=== PATIENT | female | born 1940 | race Caucasian/White ===

== ENCOUNTER 2017-02-17 08:36 | Inpatient (IN) | payer MEDICARE, BC ==
[~2017-02-17 08:36] MED LIST: Acetaminophen/oxyCODONE 325-5 MG Tab PO PRN; Lactated Ringers 1,000 ML IV SCH; Lidocaine 1%/Sod Bicarbonate in NS 8.4% 1 ML Syringe PRN; Sodium Chloride 0.9% 10 ML Syringe FLUSH PRN
[2017-02-17] MEDS ORDERED: Propofol 200 MG/20 ML SDV ONE ×2 (09:08→12:49)
[2017-02-17] MEDS ORDERED: Midazolam 1 MG/ML 2 ML SDV ONE (09:09)
[2017-02-17] MEDS ORDERED: Morphine PF 10 MG/10 ML SDV ONE (09:17)
--- NOTE | 2017-02-17 09:33 | PCM.PREANE ---
Preanesthetic Assessment - Anesthesia/Transfusion/Family Hx Anesthesia History: Prior Anesthesia Without Reaction Type of Anesthesia Reaction: Other (see below) (trouble waking up) Family History of Anesthesia Reaction: No Transfusion History: No Prior Transfusion(s) - Review of Systems General: No Symptoms, Fatigue (tired alot) Pulmonary: Shortness of Breath (with exertion) Cardiovascular: No Symptoms, Dyspnea on Exertion Gastrointestinal: No symptoms Neurological: No Symptoms Other: Reports: Easy Bruising, Diabetes, Thyroid Problems - Physical Assessment NPO Status Date: 02/16/17 NPO Status Time: 21:30 Pulse: 70 O2 Sat by Pulse Oximetry: 97 Respiratory Rate: 20 Blood Pressure: 155/73 Temperature: 99 F Height: 5 ft Weight: 99.79 kg ASA Class: 3 Mental Status: Alert & Oriented x3 Dentition: Reports: Dentures (top and bottom) Thyro-Mental Finger Breadths: 3 Mouth Opening Finger Breadths: 3 ROM/Head Extension: Full Lungs: Clear to auscultation, Normal respiratory effort Cardiovascular: Regular Rate, Irregular Rhythm - Lab Values: FBS today 146 at 0700 01/2017 HGB 12 Plt 292 BUN 30 Cr 1.28 Lytes WNL HGBA1C 7.4 - Imaging/EKG Impressions: 01/29 CXR borderline cardiomegaly. tortuous aorts. 01/29 EKG- SR 69 HR PAC - left BBB - Allergies Allergies/Adverse Reactions: Allergies Allergy/AdvReac Type Severity Reaction Status Date / Time amoxicillin trihydrate AdvReac Diarrhea Verified 02/17/17 09:00 [From Augmentin] ciprofloxacin [From Cipro] AdvReac Nausea Verified 02/14/17 11:43 ciprofloxacin HCl AdvReac Nausea Verified 02/14/17 11:43 [From Cipro] meclizine HCl [From Antivert] AdvReac Confusion Verified 02/14/17 11:43 potassium clavulanate AdvReac Diarrhea Verified 02/17/17 09:00 [From Augmentin] Sulfa (Sulfonamide AdvReac Stomach Verified 02/14/17 11:43 Antibiotics) Upset sulfamethoxazole AdvReac Nausea Verified 02/17/17 09:00 [From Bactrim] trimethoprim [From Bactrim] AdvReac Nausea Verified 02/17/17 09:00 - Blood Blood Available: No - Anesthesia Plan Pre-Op Medication Ordered: Beta Simón Beta Simón: Carvedilol Med Last Dose Date: 02/17/17 Med Last Dose Time: 07:00 - Acknowledgements Anesthesia Type Planned: Spinal Pt an Appropriate Candidate for the Planned Anesthesia: Yes Alternatives and Risks of Anesthesia Discussed w Pt/Guardian: Yes Pt/Guardian Understands and Agrees with Anesthesia Plan: Yes PreAnesthesia Questionnaire HEENT History: Reports: Impaired Vision, Macular Degeneration, Other (See Below) Other HEENT History: glasses, dentures Cardiovascular History: Reports: Afib, Arrhythmia, Cardiomyopathy, High Cholesterol, Hypertension, PVD, Other (See Below) Other Cardiovascular History: PACs Respiratory History: Reports: SOB Gastrointestinal History: Reports: Gastritis, GERD, Irritable Bowel Syndrome Genitourinary History: Reports: Other (See Below) Other Genitourinary History: acute renal failure, was on dialysis tempor2013 [employer] History: Reports: Musculoskeletal History: Reports: Back Pain, Chronic, Osteoarthritis Neurological History: Reports: Vertigo, Other (See Below) Other Neuro History: spinal stenosis with tingling to hands Psychiatric History: Reports: None Endocrine/Metabolic History: Reports: Diabetes, Type II, Hyperparathyroidism, Obesity/BMI 30+ Hematologic History: Reports: Anemia Immunologic History: Reports: None Oncologic (Cancer) History: Reports: None Dermatologic History: Reports: None - Past Surgical History Head Surgeries/Procedures: Reports: None Cardiovascular Surgical History: Reports: Other (See Below) (cardiac cath) GI Surgical History: Reports: Appendectomy, Colonoscopy Endocrine Surgical History: Reports: Parathyroidectomy Neurological Surgical History: Reports: Laminectomy Musculoskeletal Surgical History: Reports: Other (See Below) Other Musculoskeletal Surgeries/Procedures:: Shoulder surgery, laminectomy - SUBSTANCE USE Smoking Status *Q: Never Smoker Tobacco Use Within Last Twelve Months: No Second Hand Smoke Exposure: No Days Per Week of Alcohol Use: 0 Number of Drinks Per Day: 0 Total Drinks Per Week: 0 Recreational Drug Use History: No - HOME MEDS Home Medications: Home Meds Allopurinol [Zyloprim] 100 mg PO DAILY 07/06/14 [History] Aspirin [Halfprin] 81 mg PO DAILY 07/06/14 [History] Calcium Carb & Citrate/Vit D3 [Calcium + D3 ER Tablet] 1 tab PO DAILY 07/06/14 [ History] Carvedilol 12.5 mg PO BID 07/06/14 [History] Furosemide 20 mg PO DAILY 07/06/14 [History] Gabapentin 200 mg PO DAILY 07/06/14 [History] Insulin Glarg,Human.Rec.Analog [Lantus Solostar] 31 units SQ BEDTIME 07/06/14 [ History] Losartan [Cozaar] 50 mg PO DAILY 07/06/14 [History] Lutein/Minerals/Vit A,C & E [Ocuvite] 1 tab PO DAILY 07/06/14 [History] Omeprazole 40 mg PO DAILY 07/06/14 [History] Sucralfate [Carafate] 2 gm PO BEDTIME 07/06/14 [History] tiZANidine HCl [Tizanidine HCl] 4 mg PO BEDTIME 07/06/14 [History] traMADol [Ultram] 100 mg PO BID 07/06/14 [History] Cholecalciferol (Vitamin D3) [Vitamin D3] 1,000 unit PO DAILY 02/14/17 [History] Insulin Aspart [NovoLOG] 1 dose SQ TID 02/14/17 [History] Levothyroxine 25 mcg PO DAILY 02/14/17 [History] Rosuvastatin [Crestor] 10 mg PO DAILY 02/14/17 [History] metFORMIN HCl [Metformin HCl] 250 mg PO BID 02/14/17 [History] - CURRENT (IN HOUSE) MEDS Current Meds: Current Medications Aspirin (Ecotrin) 325 mg PO BID CATHY Bisacodyl (Dulcolax) 5 mg PO DAILY PRN PRN Reason: Constipation Morphine Sulfate 8 mg/Epinephrine HCl 0.3 mg/Cefuroxime Sodium 750 mg/Ketorolac Tromethamine 30 mg/Sodium Chloride 27.9 ml 0 mg .XX ONETIME ONE Stop: 02/17/17 10:46 Docusate Sodium (Colace) 100 mg PO BID CATHY Famotidine (Pepcid) 20 mg PO Q12H CATHY Lactated Ringer's (Ringers, Lactated) 1,000 mls @ 125 mls/hr IV ASDIRECTED CATHY Stop: 02/17/17 23:00 Lidocaine/Sodium Bicarbonate (Buffered Lidocaine 1% In Ns 8.4%) 0.25 ml .XX ONETIME PRN PRN Reason: Prior to IV Start Stop: 02/17/17 18:00 Magnesium Hydroxide (Milk Of Magnesia) 30 ml PO BID PRN PRN Reason: Constipation Morphine Sulfate (Morphine) 2 mg IVPUSH Q2H PRN PRN Reason: Breakthrough Pain Multivitamins (Thera) 1 each PO WITHBREAKFAST CATHY Naloxone HCl (Narcan) 0.1 mg IVPUSH Q5M PRN PRN Reason: Oversedation Stop: 02/17/17 07:26 Ondansetron HCl (Zofran) 4 mg IVPUSH Q6H PRN PRN Reason: Nausea/Vomiting Oxycodone/Acetaminophen (Percocet 325-5 Mg) 1 - 2 tab PO Q4H PRN PRN Reason: Pain Oxycodone/Acetaminophen (Percocet 325-5 Mg) 1 - 2 tab PO Q4H PRN PRN Reason: Pain Senna (Senna) 8.6 mg PO BID PRN PRN Reason: Constipation Sodium Chloride (Saline Flush) 10 ml FLUSH ASDIRECTED PRN PRN Reason: Keep Vein Open Stop: 02/17/17 18:00 Discontinued Medications Cefazolin Sodium (Ancef) Confirm Administered Dose 2 gm .ROUTE .STK-MED ONE Stop: 02/17/17 09:06 Midazolam HCl (Versed 1 Mg/Ml) Confirm Administered Dose 2 mg .ROUTE .STK-MED ONE Stop: 02/17/17 09:10 Morphine Sulfate (Duramorph Pf) Confirm Administered Dose 10 mg .ROUTE .STK-MED ONE Stop: 02/17/17 09:18 Propofol (Diprivan 20 Ml) Confirm Administered Dose 200 mg .ROUTE .STK-MED ONE Stop: 02/17/17 09:09
[2017-02-17] MEDS ORDERED: ceFAZolin 1 GM Vial ONE (09:47)
[2017-02-17] MEDS ORDERED: Diphtheria,Pertussis(Acell),Tetanus Vaccine 0.5 ML SDV inactive IM ONE (09:51)
[2017-02-17] MEDS ORDERED: Pneumococcal 13-Valent Conjugate Vaccine 0.5 ML Syringe IM ONE (09:52)
[2017-02-17] MEDS: Bupivacaine 0.25% 30 ML SDV ONE ×2 (11:07→13:05)
[2017-02-17] MEDS: Morphine 8 MG, EPINEPHrine 0.3 MG, Cefuroxime 750 MG, Ketorolac 30 MG, Sodium Chloride ... ONE ×10 (11:08→13:04)
[2017-02-17] MEDS: Iodine/Sodium Iodide 2% Tincture 30 ML Bottle ONE ×2 (11:08→13:00)
[2017-02-17] MEDS: ceFAZolin 1 GM Vial ONE ×2 (11:09→13:02)
[2017-02-17] MEDS ORDERED: Sodium Chloride 0.9% 1,000 ML ONE (11:50)
[2017-02-17] MEDS ORDERED: Magnesium Hydroxide 400 MG/5 ML Susp 30 ML Cup PO PRN (12:00)
[2017-02-17] MEDS ORDERED: Bisacodyl 5 MG Tab PO PRN (12:00)
[2017-02-17] MEDS ORDERED: Naloxone 0.4 MG/ML SDV IVPUSH PRN (12:00)
[2017-02-17] MEDS ORDERED: Sennosides 8.6 MG Tab PO PRN (12:00)
[2017-02-17] MEDS ORDERED: Ondansetron 4 MG/2 ML SDV IVPUSH PRN ×2 (12:00→12:44)
[2017-02-17] MEDS ORDERED: Lidocaine 1% 4 ML ONE (12:04)
[2017-02-17] MEDS ORDERED: ePHEDrine/Normal Saline 25 MG/5 ML Syringe ONE ×2 (12:16→13:31)
[2017-02-17] MEDS ORDERED: fentaNYL 100 MCG/2 ML SDV IVPUSH PRN (12:44)
[2017-02-17] MEDS ORDERED: diphenhydrAMINE 50 MG/ML SDV IVPUSH PRN (13:19)
--- NOTE | 2017-02-17 13:39 | PCM.OPNOTE ---
- General Post-Op/Procedure Note Date of Surgery/Procedure: 02/17/17 Operative Procedure(s): left total knee arthroplasty Pre Op Diagnosis: left knee osteoarthrosis Post-Op Diagnosis: Same Anesthesia Technique: Local, MAC, Spinal Primary Surgeon: Parveen Brothers Anesthesia Provider: Bk Ceja Package Sealer Machine: Gracie Ortiz Package Sealer Machine: Kayla Walter in mLs: 100 Complications: None Condition: Good
--- NOTE | 2017-02-17 13:50 | PCM.POSTAN ---
POST ANESTHESIA ASSESSMENT - MENTAL STATUS Mental Status: alert, oriented - VITAL SIGNS Pulse Rate: 76 SaO2: 96 Resp Rate: 16 Blood Pressure: 111/48 Temperature: 99.5 F - RESPIRATORY Respiratory Status: respiratory rate WNL, airway patent, O2 saturation stable, supplemental oxygen - CARDIOVASCULAR CV Status: pulse rate WNL, blood pressure stable - GASTROINTESTINAL GI Status: no symptoms - PAIN Pain Score: 0 - POST OP HYDRATION Hydration Status: adequate & stable
--- NOTE | 2017-02-17 15:23 | CR ---
Left knee: AP and lateral views of the left knee were obtained. Comparison: No previous knee exam. Left knee prosthesis is seen. Components are aligned. Soft tissue air is noted from the surgical procedure. Underlying bony structures are intact. Impression: 1. Satisfactory appearance of recently placed left knee prosthesis. Diagnostic code #2
--- NOTE | 2017-02-17 16:09 | PCM.CONSN ---
- General Info Date of Service: 02/17/17 Admission Dx/Problem (Free Text): 76 year old female with left knee OA is S/P left total knee arthroplasty. The patient has an extensive PMH: MEI (without CPAP); HTN; A fib; Hyperlipdemia; CMP; PVD; GERD. The hospitalist service will assist with medical management. Functional Status: Reports: pain controlled, tolerating diet, urinating - Review of Systems General: Reports: No Symptoms HEENT: Reports: no symptoms Pulmonary: Reports: no symptoms Cardiovascular: Reports: No Symptoms Gastrointestinal: Reports: No symptoms Genitourinary: Reports: no symptoms Musculoskeletal: Reports: leg pain Skin: Reports: no symptoms Neurological: Reports: No Symptoms Psychiatric: Reports: no symptoms - Patient Data Vitals - most recent: Last Vital Signs Temp 36.3 C 02/17/17 14:30 Pulse 68 02/17/17 15:28 Resp 16 02/17/17 15:28 BP 132/61 02/17/17 15:00 Pulse Ox 93 L 02/17/17 15:28 Weight - most recent: 105.143 kg I&O - last 24 hours: Intake & Output 02/17/17 02/17/17 02/17/17 06:59 14:59 22:59 Intake Total 200 Output Total 275 Balance -75 Lab Results last 24 hrs: Laboratory Results - last 24 hr 02/17/17 Range/Units 13:53 POC Glucose 99 (83-110) mg/dL Med Orders - Current: Current Medications Aspirin (Ecotrin) 325 mg PO BID CATHY Bisacodyl (Dulcolax) 5 mg PO DAILY PRN PRN Reason: Constipation Diphenhydramine HCl (Benadryl) 25 mg IVPUSH Q6H PRN PRN Reason: pruritis Stop: 02/17/17 18:00 Docusate Sodium (Colace) 100 mg PO BID CATHY Famotidine (Pepcid) 20 mg PO BID CATHY Magnesium Hydroxide (Milk Of Magnesia) 30 ml PO BID PRN PRN Reason: Constipation Morphine Sulfate (Morphine) 2 mg IVPUSH Q2H PRN PRN Reason: Breakthrough Pain Multivitamins (Thera) 1 each PO WITHBREAKFAST CATHY Ondansetron HCl (Zofran) 4 mg IVPUSH Q6H PRN PRN Reason: Nausea/Vomiting Ondansetron HCl (Zofran) 4 mg IVPUSH ONETIME PRN PRN Reason: Nausea/Vomiting Stop: 02/17/17 18:00 Oxycodone/Acetaminophen (Percocet 325-5 Mg) 1 - 2 tab PO Q4H PRN PRN Reason: Pain Senna (Senna) 8.6 mg PO BID PRN PRN Reason: Constipation Sodium Chloride (Saline Flush) 10 ml FLUSH ASDIRECTED PRN PRN Reason: Keep Vein Open Stop: 02/17/17 18:00 Discontinued Medications Bupivacaine HCl (Marcaine 0.25%) Confirm Administered Dose 30 ml .ROUTE .STK- MED ONE Stop: 02/17/17 09:48 Last Admin: 02/17/17 13:05 Dose: 30 ml Cefazolin Sodium (Ancef) Confirm Administered Dose 2 gm .ROUTE .STK-MED ONE Stop: 02/17/17 09:06 Last Admin: 02/17/17 13:02 Dose: 2 gm Cefazolin Sodium (Ancef) Confirm Administered Dose 2 gm .ROUTE .STK-MED ONE Stop: 02/17/17 09:48 Morphine Sulfate 8 mg/Epinephrine HCl 0.3 mg/Cefuroxime Sodium 750 mg/Ketorolac Tromethamine 30 mg/Sodium Chloride 27.9 ml 0 mg .XX ONETIME ONE Stop: 02/17/17 10:46 Last Admin: 02/17/17 13:04 Dose: 788.3 mg Diphtheria/Tetanus/Acell Pertussis (Boostrix) 0.5 ml IM .ONCE ONE Stop: 02/17/17 09:52 Ephedrine Sulfate (Ephedrine In Ns) Confirm Administered Dose 25 mg .ROUTE .STK- MED ONE Stop: 02/17/17 12:17 Ephedrine Sulfate (Ephedrine In Ns) Confirm Administered Dose 25 mg .ROUTE .STK- MED ONE Stop: 02/17/17 13:32 Fentanyl (Sublimaze) 50 mcg IVPUSH Q5M PRN PRN Reason: Pain Stop: 02/17/17 18:00 Lactated Ringer's (Ringers, Lactated) 1,000 mls @ 125 mls/hr IV ASDIRECTED CATHY Stop: 02/17/17 23:00 Last Admin: 02/17/17 09:10 Dose: 125 mls/hr Sodium Chloride (Normal Saline) Confirm Administered Dose 1,000 mls @ as directed .ROUTE .STK-MED ONE Stop: 02/17/17 11:51 Lidocaine HCl (Xylocaine-Mpf 1%) Confirm Administered Dose 4 mls @ as directed .ROUTE .STK-MED ONE Stop: 02/17/17 12:05 Iodine (Iodine 2% Mild Tincture) Confirm Administered Dose 30 ml .ROUTE .STK- MED ONE Stop: 02/17/17 09:48 Last Admin: 02/17/17 13:00 Dose: 18 ml Lidocaine/Sodium Bicarbonate (Buffered Lidocaine 1% In Ns 8.4%) 0.25 ml .XX ONETIME PRN PRN Reason: Prior to IV Start Stop: 02/17/17 18:00 Last Admin: 02/17/17 09:09 Dose: 0.25 ml Midazolam HCl (Versed 1 Mg/Ml) Confirm Administered Dose 2 mg .ROUTE .STK-MED ONE Stop: 02/17/17 09:10 Morphine Sulfate (Duramorph Pf) Confirm Administered Dose 10 mg .ROUTE .STK-MED ONE Stop: 02/17/17 09:18 Naloxone HCl (Narcan) 0.1 mg IVPUSH Q5M PRN PRN Reason: Oversedation Stop: 02/17/17 12:16 Pneumococcal 13-Valent Conj Vacc (Prevnar 13) 0.5 ml IM .ONCE ONE Stop: 02/17/17 09:53 Propofol (Diprivan 20 Ml) Confirm Administered Dose 200 mg .ROUTE .STK-MED ONE Stop: 02/17/17 09:09 Propofol (Diprivan 20 Ml) Confirm Administered Dose 200 mg .ROUTE .STK-MED ONE Stop: 02/17/17 12:50 Tranexamic Acid (Cyklokapron) Confirm Administered Dose 1,000 mg .ROUTE .STK- MED ONE Stop: 02/17/17 09:47 Last Admin: 02/17/17 13:14 Dose: 1,000 mg - Exam Quality Assessment: urine catheter (post op), DVT prophylaxis General: alert, oriented, cooperative, no acute distress HEENT: Pupils equal, Pupils reactive, EOMI Neck: supple, trachea midline, no JVD Lungs: Normal respiratory effort Cardiovascular: Regular Rate, Regular Rhythm Abdomen: bowel sounds present, soft, no tenderness, no distension (Female) Exam: Deferred Back Exam: Normal Inspection Extremities: normal pulses Skin: warm Wound/Incisions: dressing dry and intact Neurological: no new focal deficit, normal speech Psy/Mental Status: alert, normal affect, normal mood Consult PN Assessment/Plan POD#: 0 Procedures: Procedures ARTHROSCOP ROTATOR CUFF REPR (07/07/14) ASSAY OF MAGNESIUM (07/07/14) CANALITH REPOSITIONING PROC (03/07/15) COMPLETE CBC W/AUTO DIFF WBC (07/07/14) CT HEAD/BRAIN W/O DYE (04/03/15) ECG MONIT/REPRT UP TO 48 HRS (04/03/15) ECG MONIT/REPRT UP TO 48 HRS (04/03/15) ELECTROCARDIOGRAM TRACING (07/07/14) EVALUATE PT USE OF INHALER (07/07/14) GLUCOSE BLOOD TEST (07/07/14) MANUAL THERAPY 1/> REGIONS (10/24/16) MASSAGE THERAPY (03/27/15) METABOLIC PANEL TOTAL CA (07/07/14) MR-STAPH DNA AMP PROBE (02/05/17) MRI JOINT UPR EXTREM W/O DYE (04/28/14) NEUROMUSCULAR REEDUCATION (03/27/15) OT EVALUATION (02/11/14) PT EVAL MOD COMPLEX 30 MIN (10/03/16) PT EVALUATION (03/07/15) ROUTINE VENIPUNCTURE (07/07/14) SHOULDER ARTHROSCOPY/SURGERY (07/07/14) SHOULDER ARTHROSCOPY/SURGERY (07/07/14) THERAPEUTIC ACTIVITIES (02/22/14) THERAPEUTIC EXERCISES (10/24/16) THROMBOPLASTIN TIME PARTIAL (06/27/14) ULTRASOUND THERAPY (10/24/16) (1) Afib, Atrial fibrillation SNOMED Code(s): 75831911 Code(s): I48.91 - UNSPECIFIED ATRIAL FIBRILLATION Current Visit: No (2) Diabetes mellitus SNOMED Code(s): 39177360 Code(s): E11.9 - TYPE 2 DIABETES MELLITUS WITHOUT COMPLICATIONS Current Visit: No (3) HTN, Benign essential hypertension SNOMED Code(s): 4126001 Code(s): I10 - ESSENTIAL (PRIMARY) HYPERTENSION Current Visit: No Problem List Initiated/Reviewed/Updated: Yes Plan: Impression: POD 0, S/P left total knee athroplasty History of OA Morbid Obesity Chronic HTN Hyperlipidemia MEI (has not had a sleep study) Hyperlipidemia A Fib CMP PVD GERD Diabetes Mellitus Plan: Post op [place] removal Daily labs Home meds Pain mgt DVT prophylaxis SW/PT/OT
[2017-02-17] MEDS ORDERED: Pneumococcal Polyvalent-23 Vaccine 0.5 ML SDV IM ONE (16:12)
[2017-02-17] MEDS: Acetaminophen/oxyCODONE 325-5 MG Tab PO PRN ×2 (18:54→23:11)
[2017-02-17] MEDS ORDERED: Famotidine 20 MG Tab PO SCH (21:00)
[2017-02-17] MEDS: Cyclobenzaprine 10 MG Tab PO PRN (21:12)
[2017-02-17] MEDS: ceFAZolin 2 GM in Premix Bag 1 BAG IV SCH (21:13)
[2017-02-18] MEDS: Acetaminophen/oxyCODONE 325-5 MG Tab PO PRN ×4 (04:29→20:52)
[2017-02-18] MEDS: ceFAZolin 2 GM in Premix Bag 1 BAG IV SCH ×2 (04:32→12:54)
[2017-02-18] MEDS: Cyclobenzaprine 10 MG Tab PO PRN ×2 (05:19→15:17)
[2017-02-18] MEDS: Multivitamins,Therapeutic Tab PO SCH (06:53)
--- NOTE | 2017-02-18 06:53 | PCM.CONSN ---
- General Info Date of Service: 02/18/17 Admission Dx/Problem (Free Text): POD #[address] Brothers Pain is 9/10 this morning; she did not sleep well. No nausea. Sol to be dc'd this am. She was up with PT yesterday x 1, did well. Nursing reports b/p elevated this morning. Plans for DC to SNF for rehab stay Functional Status: Reports: tolerating diet, ambulating, urinating (sol in place; to be dc'd this am). Denies: new symptoms - Review of Systems General: Denies: Fever HEENT: Reports: no symptoms Pulmonary: Reports: no symptoms. Denies: shortness of breath, cough Cardiovascular: Reports: No Symptoms. Denies: Chest Pain, Palpitations, Dyspnea on Exertion Gastrointestinal: Reports: No symptoms Genitourinary: Reports: no symptoms Musculoskeletal: Reports: leg pain Neurological: Reports: No Symptoms Psychiatric: Reports: no symptoms - Patient Data Vitals - most recent: Last Vital Signs Temp 99.0 F 02/18/17 06:24 Pulse 92 02/18/17 06:24 Resp 18 02/18/17 04:00 BP 180/88 H 02/18/17 06:24 Pulse Ox 98 02/18/17 06:24 Weight - most recent: 236 lb 9.6 oz I&O - last 24 hours: Intake & Output 02/17/17 02/17/17 02/18/17 14:59 22:59 06:59 Intake Total 200 0 350 Output Total 275 425 Balance -75 0 -75 Lab Results last 24 hrs: Laboratory Results - last 24 hr 02/17/17 02/17/17 02/17/17 Range/Units 13:53 17:17 21:35 WBC (3.98-10.04) K/mm3 RBC (3.98-5.22) M/mm3 Hgb (11.2-15.7) gm/L Hct (34.1-44.9) % MCV (79.4-94.8) fl MCH (25.6-32.2) pg MCHC (32.2-35.5) g/dl RDW Std Deviation (36.4-46.3) fL Plt Count (182-369) K/mm3 MPV (9.4-12.3) fl Neut % (Auto) (34.0-71.1) % Lymph % (Auto) (19.3-51.7) % [place] % (Auto) (4.7-12.5) % Eos % (Auto) (0.7-5.8) Baso % (Auto) (0.1-1.2) % Neut # (Auto) (1.56-6.13) K/mm3 Lymph # (Auto) (1.18-3.74) K/mm3 [place] # (Auto) (0.24-0.36) K/mm3 Eos # (Auto) (0.04-0.36) K/mm3 Baso # (Auto) (0.01-0.08) K/mm3 Manual Slide Review POC Glucose 99 102 204 H (83-110) mg/dL 02/18/17 Range/Units 05:12 WBC 8.33 (3.98-10.04) K/mm3 RBC 3.95 L (3.98-5.22) M/mm3 Hgb 10.7 L (11.2-15.7) gm/L Hct 35.8 (34.1-44.9) % MCV 90.6 (79.4-94.8) fl MCH 27.1 (25.6-32.2) pg MCHC 29.9 L (32.2-35.5) g/dl RDW Std Deviation 48.6 H (36.4-46.3) fL Plt Count 316 (182-369) K/mm3 MPV 9.8 (9.4-12.3) fl Neut % (Auto) 75.4 H (34.0-71.1) % Lymph % (Auto) 14.6 L (19.3-51.7) % [place] % (Auto) 7.9 (4.7-12.5) % Eos % (Auto) 1.8 (0.7-5.8) Baso % (Auto) 0.2 (0.1-1.2) % Neut # (Auto) 6.27 H (1.56-6.13) K/mm3 Lymph # (Auto) 1.22 (1.18-3.74) K/mm3 [place] # (Auto) 0.66 H (0.24-0.36) K/mm3 Eos # (Auto) 0.15 (0.04-0.36) K/mm3 Baso # (Auto) 0.02 (0.01-0.08) K/mm3 Manual Slide Review Normal smear POC Glucose (83-110) mg/dL Med Orders - Current: Current Medications Allopurinol (Zyloprim) 100 mg PO DAILY [facility] Aspirin (Ecotrin) 325 mg PO BID [facility] Bisacodyl (Dulcolax) 5 mg PO DAILY PRN PRN Reason: Constipation Carvedilol (Coreg) 12.5 mg PO BID [facility] Cholecalciferol (Vitamin D3) 1,000 units PO DAILY [facility] Cyclobenzaprine HCl (Flexeril) 5 mg PO Q8HR PRN PRN Reason: Spasms Last Admin: 02/18/17 05:19 Dose: 5 mg Docusate Sodium (Colace) 100 mg PO BID [facility] Furosemide (Lasix) 20 mg PO DAILY [facility] Gabapentin (Neurontin) 200 mg PO DAILY [facility] Cefazolin Sodium/Dextrose 2 gm (/ Premix) 50 mls @ 100 mls/hr IV Q8H CATHY Stop: 02/18/17 12:59 Last Admin: 02/18/17 04:32 Dose: 100 mls/hr Insulin Aspart (Novolog) unit SUBCUT TID CATHY PRN Reason: Protocol Levothyroxine Sodium (Levothyroxine) 25 mcg PO DAILY [facility] Magnesium Hydroxide (Milk Of Magnesia) 30 ml PO BID PRN PRN Reason: Constipation Morphine Sulfate (Morphine) 2 mg IVPUSH Q2H PRN PRN Reason: Breakthrough Pain Multivitamins (Thera) 1 each PO WITHBREAKFAST [facility] Non-Formulary Medication (Calcium Carb & Citrate/Vit D3 [Calcium + D3 Er Tablet] ) 1 tab PO DAILY [facility] Non-Formulary Medication (Insulin Glarg,Human.Rec.Analog) 31 units SQ BEDTIME CATHY Non-Formulary Medication (Losartan) 50 mg PO DAILY [facility] Non-Formulary Medication (Lutein/Minerals/Vit A,C & E) 1 tab PO DAILY [facility] Non-Formulary Medication (Omeprazole [Omeprazole]) 40 mg PO DAILY [facility] Ondansetron HCl (Zofran) 4 mg IVPUSH Q6H PRN PRN Reason: Nausea/Vomiting Oxycodone/Acetaminophen (Percocet 325-5 Mg) 1 - 2 tab PO Q4H PRN PRN Reason: Pain Last Admin: 02/18/17 04:29 Dose: 2 tab Rosuvastatin Calcium (Crestor) 10 mg PO DAILY [facility] Senna (Senna) 8.6 mg PO BID PRN PRN Reason: Constipation Sucralfate (Carafate) 2 gm PO BEDTIME CATHY Discontinued Medications Bupivacaine HCl (Marcaine 0.25%) Confirm Administered Dose 30 ml .ROUTE .STK- MED ONE Stop: 02/17/17 09:48 Last Admin: 02/17/17 13:05 Dose: 30 ml Cefazolin Sodium (Ancef) Confirm Administered Dose 2 gm .ROUTE .STK-MED ONE Stop: 02/17/17 09:06 Last Admin: 02/17/17 13:02 Dose: 2 gm Cefazolin Sodium (Ancef) Confirm Administered Dose 2 gm .ROUTE .STK-MED ONE Stop: 02/17/17 09:48 Morphine Sulfate 8 mg/Epinephrine HCl 0.3 mg/Cefuroxime Sodium 750 mg/Ketorolac Tromethamine 30 mg/Sodium Chloride 27.9 ml 0 mg .XX ONETIME ONE Stop: 02/17/17 10:46 Last Admin: 02/17/17 13:04 Dose: 788.3 mg Diphenhydramine HCl (Benadryl) 25 mg IVPUSH Q6H PRN PRN Reason: pruritis Stop: 02/17/17 18:00 Diphtheria/Tetanus/Acell Pertussis (Boostrix) 0.5 ml IM .ONCE ONE Stop: 02/17/17 09:52 Enoxaparin Sodium (Lovenox) 40 mg SUBCUT DAILY [facility] Ephedrine Sulfate (Ephedrine In Ns) Confirm Administered Dose 25 mg .ROUTE .STK- MED ONE Stop: 02/17/17 12:17 Ephedrine Sulfate (Ephedrine In Ns) Confirm Administered Dose 25 mg .ROUTE .STK- MED ONE Stop: 02/17/17 13:32 Famotidine (Pepcid) 20 mg PO BID [facility] Last Admin: 02/17/17 21:09 Dose: 20 mg Fentanyl (Sublimaze) 50 mcg IVPUSH Q5M PRN PRN Reason: Pain Stop: 02/17/17 18:00 Lactated Ringer's (Ringers, Lactated) 1,000 mls @ 125 mls/hr IV ASDIRECTED [facility] Stop: 02/17/17 23:00 Last Admin: 02/17/17 09:10 Dose: 125 mls/hr Sodium Chloride (Normal Saline) Confirm Administered Dose 1,000 mls @ as directed .ROUTE .STK-MED ONE Stop: 02/17/17 11:51 Lidocaine HCl (Xylocaine-Mpf 1%) Confirm Administered Dose 4 mls @ as directed .ROUTE .STK-MED ONE Stop: 02/17/17 12:05 Iodine (Iodine 2% Mild Tincture) Confirm Administered Dose 30 ml .ROUTE .STK- MED ONE Stop: 02/17/17 09:48 Last Admin: 02/17/17 13:00 Dose: 18 ml Lidocaine/Sodium Bicarbonate (Buffered Lidocaine 1% In Ns 8.4%) 0.25 ml .XX ONETIME PRN PRN Reason: Prior to IV Start Stop: 02/17/17 18:00 Last Admin: 02/17/17 09:09 Dose: 0.25 ml Midazolam HCl (Versed 1 Mg/Ml) Confirm Administered Dose 2 mg .ROUTE .STK-MED ONE Stop: 02/17/17 09:10 Morphine Sulfate (Duramorph Pf) Confirm Administered Dose 10 mg .ROUTE .STK-MED ONE Stop: 02/17/17 09:18 Naloxone HCl (Narcan) 0.1 mg IVPUSH Q5M PRN PRN Reason: Oversedation Stop: 02/17/17 12:16 Ondansetron HCl (Zofran) 4 mg IVPUSH ONETIME PRN PRN Reason: Nausea/Vomiting Stop: 02/17/17 18:00 Pneumococcal 13-Valent Conj Vacc (Prevnar 13) 0.5 ml IM .ONCE ONE Stop: 02/17/17 09:53 Pneumococcal Polyvalent Vaccine (Pneumovax 23) 0.5 ml IM .ONCE ONE Stop: 02/17/17 16:13 Propofol (Diprivan 20 Ml) Confirm Administered Dose 200 mg .ROUTE .STK-MED ONE Stop: 02/17/17 09:09 Propofol (Diprivan 20 Ml) Confirm Administered Dose 200 mg .ROUTE .STK-MED ONE Stop: 02/17/17 12:50 Sodium Chloride (Saline Flush) 10 ml FLUSH ASDIRECTED PRN PRN Reason: Keep Vein Open Stop: 02/17/17 18:00 Tranexamic Acid (Cyklokapron) Confirm Administered Dose 1,000 mg .ROUTE .[employer] ONE Stop: 02/17/17 09:47 Last Admin: 02/17/17 13:14 Dose: 1,000 mg - Exam Quality Assessment: DVT prophylaxis General: alert, oriented, cooperative, no acute distress HEENT: Pupils equal, Pupils reactive, EOMI, Mucous membr. moist/pink Neck: supple Lungs: Clear to auscultation, Normal respiratory effort Cardiovascular: Regular Rate, Regular Rhythm, No Murmurs Abdomen: bowel sounds present, soft, no tenderness, no distension (Female) Exam: Deferred Extremities: no edema, other (scd's teds and ice to knee) Peripheral Pulses: 1+: Dorsalis Pedis (L), Dorsalis Pedis (R) Skin: warm, dry Wound/Incisions: dressing dry and intact Neurological: no new focal deficit Psy/Mental Status: alert, normal affect, normal mood Consult PN Assessment/Plan POD#: 1 Procedures: Procedures ARTHROSCOP ROTATOR CUFF REPR (07/07/14) ASSAY OF MAGNESIUM (07/07/14) CANALITH REPOSITIONING PROC (03/07/15) COMPLETE CBC W/AUTO DIFF WBC (07/07/14) CT HEAD/BRAIN W/O DYE (04/03/15) ECG MONIT/REPRT UP TO 48 HRS (04/03/15) ECG MONIT/REPRT UP TO 48 HRS (04/03/15) ELECTROCARDIOGRAM TRACING (07/07/14) EVALUATE PT USE OF INHALER (07/07/14) GLUCOSE BLOOD TEST (07/07/14) MANUAL THERAPY 1/> REGIONS (10/24/16) MASSAGE THERAPY (03/27/15) METABOLIC PANEL TOTAL CA (07/07/14) MR-STAPH DNA AMP PROBE (02/05/17) MRI JOINT UPR EXTREM W/O DYE (04/28/14) NEUROMUSCULAR REEDUCATION (03/27/15) OT EVALUATION (02/11/14) PT EVAL MOD COMPLEX 30 MIN (10/03/16) PT EVALUATION (03/07/15) ROUTINE VENIPUNCTURE (07/07/14) SHOULDER ARTHROSCOPY/SURGERY (07/07/14) SHOULDER ARTHROSCOPY/SURGERY (07/07/14) THERAPEUTIC ACTIVITIES (02/22/14) THERAPEUTIC EXERCISES (10/24/16) THROMBOPLASTIN TIME PARTIAL (06/27/14) ULTRASOUND THERAPY (10/24/16) (1) S/P total knee arthroplasty SNOMED Code(s): 6833593809869, 863574805, 4557175224661 Code(s): Z96.659 - PRESENCE OF UNSPECIFIED ARTIFICIAL KNEE JOINT Priority: High Current Visit: Yes Qualifiers: Laterality: left Qualified Code(s): Z96.652 - Presence of left artificial knee joint (2) Osteoarthritis SNOMED Code(s): 801765120 Code(s): M19.90 - UNSPECIFIED OSTEOARTHRITIS, UNSPECIFIED SITE Priority: High Current Visit: Yes Qualifiers: Osteoarthritis location: knee Osteoarthritis type: primary Laterality: left Qualified Code(s): M17.12 - Unilateral primary osteoarthritis, left knee (3) HTN, Benign essential hypertension SNOMED Code(s): 7606543 Code(s): I10 - ESSENTIAL (PRIMARY) HYPERTENSION Priority: Medium Current Visit: Yes (4) Diabetes mellitus SNOMED Code(s): 71347845 Code(s): E11.9 - TYPE 2 DIABETES MELLITUS WITHOUT COMPLICATIONS Priority: Medium Current Visit: Yes (5) Afib, Atrial fibrillation SNOMED Code(s): 76809211 Code(s): I48.91 - UNSPECIFIED ATRIAL FIBRILLATION Priority: Medium Current Visit: No Problem List Initiated/Reviewed/Updated: Yes My Orders last 24 hours: My Active Orders 02/18/17 09:00 Allopurinol [Zyloprim] 100 mg PO DAILY Calcium Carb & Citrate/Vit D3 [Calcium + D3 ER Tablet] 1 tab PO DAILY Carvedilol [Coreg] 12.5 mg PO BID Cholecalciferol (Vitamin D3) [Vitamin D3] 1,000 units PO DAILY Furosemide [Lasix] 20 mg PO DAILY Gabapentin [Neurontin] 200 mg PO DAILY Insulin Aspart [NovoLOG] See Protocol SUBCUT TID Levothyroxine 25 mcg PO DAILY Losartan 50 mg PO DAILY Lutein/Minerals/Vit A,C & E 1 tab PO DAILY Omeprazole [Omeprazole] 40 mg PO DAILY 02/18/17 21:00 Insulin Glarg,Human.Rec.Analog 31 units SQ BEDTIME Rosuvastatin [Crestor] 10 mg PO DAILY Sucralfate [Carafate] 2 gm PO BEDTIME 02/18/17 Breakfast Heart Healthy Diet [DIET] 02/20/17 07:00 CBC W/O DIFF,HEMOGRAM [HEME] MOTH@00 02/24/17 07:00 CBC W/O DIFF,HEMOGRAM [HEME] MOTH@00 02/27/17 07:00 CBC W/O DIFF,HEMOGRAM [HEME] MOTH@0700 03/03/17 07:00 CBC W/O DIFF,HEMOGRAM [HEME] MOTH@0700 03/06/17 07:00 CBC W/O DIFF,HEMOGRAM [HEME] MOTH@00 03/10/17 07:00 CBC W/O DIFF,HEMOGRAM [HEME] MOTH@0700 Plan: POD #[address] Brothers -Pain management and DVT prophylax per Ortho team -PT/OT -IS/RT -Hgb 10.7 this am -Plans for dc to SNF for rehab stay Chronic: HTN- elevated b/p this am; PO meds to be given early---home meds; cont to monitor Afib- rate controlled DM- sugars controlled thus far during stay; A1C preop was 7.4; resume home meds , hold metformin for now Other: GI prophylax- resume home PPI CM/SW for assist with DC planning/SNF placement Patient is Full Code
--- NOTE | 2017-02-18 07:58 | PCM48HPAN ---
Post Anesthesia Note - EVALUATION WITHIN 48HRS OF ANESTHETIC Vital Signs in Normal Range: Yes Patient Participated in Evaluation: Yes Respiratory Function Stable: Yes Airway Patent: Yes Cardiovascular Function Stable: Yes Hydration Status Stable: Yes Pain Control Satisfactory: Yes (increasing meds, possible morphine) Nausea and Vomiting Control Satisfactory: Yes Mental Status Recovered: Yes - COMMENTS/OBSERVATIONS Free Text/Narrative:: no anesthesia complications noted
[2017-02-18] MEDS ORDERED: Losartan 25 MG Tab PO SCH (09:00)
[2017-02-18] MEDS ORDERED: Enoxaparin 40 MG/0.4 ML Syringe SUBCUT SCH (09:00)
[2017-02-18] MEDS: Gabapentin 100 MG Cap PO SCH (09:10)
[2017-02-18] MEDS: Rosuvastatin 10 MG Tab PO SCH (09:10)
[2017-02-18] MEDS: Allopurinol 100 MG Tab PO SCH (09:11)
[2017-02-18] MEDS: Cholecalciferol (Vitamin D3) 1,000 Unit Tab PO SCH (09:11)
[2017-02-18] MEDS: Insulin Aspart 100 Units/ML 3 ML Pen SUBCUT SCH ×3 (09:12→18:17)
[2017-02-18] MEDS: Aspirin 325 MG Tab.EC PO SCH ×2 (09:12→20:54)
[2017-02-18] MEDS: Insulin Detemir 100 Units/ML 3 ML Pen SUBCUT SCH ×2 (09:15→20:57)
[2017-02-18] MEDS: Pantoprazole 40 MG Tab.CR PO SCH (09:17)
[2017-02-18] MEDS: Furosemide 20 MG Tab PO SCH (09:17)
[2017-02-18] MEDS: Multivitamins with Minerals/Folic Acid/Lutein/Zeaxanth Tab PO SCH (09:18)
[2017-02-18] MEDS: Carvedilol 12.5 MG Tab PO SCH ×2 (09:18→20:54)
[2017-02-18] MEDS: Calcium Carbonate/Vitamin D3 1500 MG-200 Units Tab PO SCH (09:18)
[2017-02-18] MEDS: Docusate Sodium 100 MG Cap PO SCH ×2 (09:19→20:54)
[2017-02-18] MEDS: Morphine 2 MG/ML Syringe IVPUSH PRN ×2 (10:35→13:05)
[2017-02-18] MEDS: Levothyroxine 25 MCG Tab PO SCH (12:54)
[2017-02-18] MEDS ORDERED: Oxybutynin 5 MG Tab PO PRN (12:59)
[2017-02-18] MEDS: oxyCODONE 5 MG Tab PO PRN (15:18)
--- NOTE | 2017-02-18 16:43 | PCM.SURGPN ---
- General Info Date of Service: 02/18/17 POD#: 1 Functional Status: Reports: tolerating diet, ambulating, urinating, other (The pt reported 7 pain at time of evaluation today.). Denies: new symptoms - Review of Systems Musculoskeletal: Reports: other (The pt participated in P.T. and O.T. today.) - Patient Data Vitals - most recent: Last Vital Signs Temp 97.9 F 02/18/17 16:03 Pulse 96 02/18/17 16:03 Resp 20 02/18/17 16:03 BP 164/98 H 02/18/17 16:03 Pulse Ox 93 L 02/18/17 16:03 Weight - most recent: 236 lb 9.6 oz I&O - last 24 hours: Intake & Output 02/18/17 02/18/17 02/18/17 06:59 14:59 22:59 Intake Total 350 150 750 Output Total 425 1300 Balance -75 150 -550 Lab Results last 24 hrs: Laboratory Results - last 24 hr 02/17/17 02/17/17 02/18/17 Range/Units 17:17 21:35 05:12 WBC 8.33 (3.98-10.04) K/mm3 RBC 3.95 L (3.98-5.22) M/mm3 Hgb 10.7 L (11.2-15.7) gm/L Hct 35.8 (34.1-44.9) % MCV 90.6 (79.4-94.8) fl MCH 27.1 (25.6-32.2) pg MCHC 29.9 L (32.2-35.5) g/dl RDW Std Deviation 48.6 H (36.4-46.3) fL Plt Count 316 (182-369) K/mm3 MPV 9.8 (9.4-12.3) fl Neut % (Auto) 75.4 H (34.0-71.1) % Lymph % (Auto) 14.6 L (19.3-51.7) % [place] % (Auto) 7.9 (4.7-12.5) % Eos % (Auto) 1.8 (0.7-5.8) Baso % (Auto) 0.2 (0.1-1.2) % Neut # (Auto) 6.27 H (1.56-6.13) K/mm3 Lymph # (Auto) 1.22 (1.18-3.74) K/mm3 [place] # (Auto) 0.66 H (0.24-0.36) K/mm3 Eos # (Auto) 0.15 (0.04-0.36) K/mm3 Baso # (Auto) 0.02 (0.01-0.08) K/mm3 Manual Slide Review Normal smear Sodium (136-145) mEq/L Potassium (3.5-5.1) mEq/L Chloride (98-107) mEq/L Carbon Dioxide (21-32) mEq/L Anion Gap (5-15) BUN (7-18) mg/dL Creatinine (0.55-1.02) mg/dL Est Cr Clr Drug Dosing mL/min Estimated GFR (MDRD) (>60) mL/min BUN/Creatinine Ratio (14-18) Glucose (83-115) mg/dL POC Glucose 102 204 H (83-110) mg/dL Calcium (8.5-10.1) mg/dL Total Bilirubin (0.2-1.0) mg/dL AST (15-37) U/L ALT (14-59) U/L Alkaline Phosphatase (46-116) U/L Total Protein (6.4-8.2) g/dl Albumin (3.4-5.0) g/dl Globulin gm/dL Albumin/Globulin Ratio (1-2) 02/18/17 02/18/17 02/18/17 Range/Units 05:12 07:39 10:51 WBC (3.98-10.04) K/mm3 RBC (3.98-5.22) M/mm3 Hgb (11.2-15.7) gm/L Hct (34.1-44.9) % MCV (79.4-94.8) fl MCH (25.6-32.2) pg MCHC (32.2-35.5) g/dl RDW Std Deviation (36.4-46.3) fL Plt Count (182-369) K/mm3 MPV (9.4-12.3) fl Neut % (Auto) (34.0-71.1) % Lymph % (Auto) (19.3-51.7) % [place] % (Auto) (4.7-12.5) % Eos % (Auto) (0.7-5.8) Baso % (Auto) (0.1-1.2) % Neut # (Auto) (1.56-6.13) K/mm3 Lymph # (Auto) (1.18-3.74) K/mm3 [place] # (Auto) (0.24-0.36) K/mm3 Eos # (Auto) (0.04-0.36) K/mm3 Baso # (Auto) (0.01-0.08) K/mm3 Manual Slide Review Sodium 138 (136-145) mEq/L Potassium 4.5 (3.5-5.1) mEq/L Chloride 104 (98-107) mEq/L Carbon Dioxide 21 (21-32) mEq/L Anion Gap 17.5 H (5-15) BUN 24 H (7-18) mg/dL Creatinine 1.3 H (0.55-1.02) mg/dL Est Cr Clr Drug Dosing 26.91 mL/min Estimated GFR (MDRD) 40 (>60) mL/min BUN/Creatinine Ratio 18.5 H (14-18) Glucose 206 H (83-115) mg/dL POC Glucose 203 H 209 H (83-110) mg/dL Calcium 8.6 (8.5-10.1) mg/dL Total Bilirubin 0.5 (0.2-1.0) mg/dL AST 18 (15-37) U/L ALT 22 (14-59) U/L Alkaline Phosphatase 203 H (46-116) U/L Total Protein 7.1 (6.4-8.2) g/dl Albumin 3.5 (3.4-5.0) g/dl Globulin 3.6 gm/dL Albumin/Globulin Ratio 1.0 (1-2) Med Orders - Current: Current Medications Allopurinol (Zyloprim) 100 mg PO DAILY [facility] Last Admin: 02/18/17 09:11 Dose: 100 mg Aspirin (Ecotrin) 325 mg PO BID [facility] Last Admin: 02/18/17 09:12 Dose: 325 mg Bisacodyl (Dulcolax) 5 mg PO DAILY PRN PRN Reason: Constipation Calcium Carbonate (Calcium Carbonate/Vitamin D 1500 Mg-200 Unit) 1 tab PO DAILY [facility] Last Admin: 02/18/17 09:18 Dose: 1 tab Carvedilol (Coreg) 12.5 mg PO BID [facility] Last Admin: 02/18/17 09:18 Dose: 12.5 mg Cholecalciferol (Vitamin D3) 1,000 units PO DAILY [facility] Last Admin: 02/18/17 09:11 Dose: 1,000 units Cyclobenzaprine HCl (Flexeril) 5 mg PO Q8HR PRN PRN Reason: Spasms Last Admin: 02/18/17 15:17 Dose: 5 mg Docusate Sodium (Colace) 100 mg PO BID [facility] Last Admin: 02/18/17 09:19 Dose: 100 mg Furosemide (Lasix) 20 mg PO DAILY [facility] Last Admin: 02/18/17 09:17 Dose: 20 mg Gabapentin (Neurontin) 200 mg PO DAILY [facility] Last Admin: 02/18/17 09:10 Dose: 200 mg Insulin Aspart (Novolog) 0 unit SUBCUT TIDMEALS [facility] PRN Reason: Protocol Last Admin: 02/18/17 12:52 Dose: 2 units Insulin Detemir (Levemir) 16 unit SUBCUT DAILY [facility] Last Admin: 02/18/17 09:15 Dose: 16 units Insulin Detemir (Levemir) 15 unit SUBCUT BEDTIME [facility] Levothyroxine Sodium (Levothyroxine) 25 mcg PO ACBREAKFAST [facility] Last Admin: 02/18/17 12:54 Dose: Not Given Losartan Potassium (Cozaar) 50 mg PO BID [facility] Magnesium Hydroxide (Milk Of Magnesia) 30 ml PO BID PRN PRN Reason: Constipation Morphine Sulfate (Morphine) 2 mg IVPUSH Q2H PRN PRN Reason: Breakthrough Pain Last Admin: 02/18/17 13:05 Dose: 2 mg Multivitamins (Thera) 1 each PO WITHBREAKFAST [facility] Last Admin: 02/18/17 06:53 Dose: 1 each Ondansetron HCl (Zofran) 4 mg IVPUSH Q6H PRN PRN Reason: Nausea/Vomiting Oxycodone HCl (Oxycodone) 5 mg PO Q6H PRN PRN Reason: Pain (moderate 4-6) Last Admin: 02/18/17 15:18 Dose: 5 mg Oxycodone/Acetaminophen (Percocet 325-5 Mg) 1 - 2 tab PO Q4H PRN PRN Reason: Pain Last Admin: 02/18/17 09:09 Dose: 2 tab Pantoprazole Sodium (Protonix) 40 mg PO DAILY@0700 [facility] Last Admin: 02/18/17 09:17 Dose: 40 mg Rosuvastatin Calcium (Crestor) 10 mg PO DAILY [facility] Last Admin: 02/18/17 09:10 Dose: 10 mg Senna (Senna) 8.6 mg PO BID PRN PRN Reason: Constipation Sucralfate (Carafate) 2 gm PO BEDTIME [facility] Vit A/Vit C/Vit E/Selen/Cu/Zn/Lutei (Icaps Mv) 1 tab PO DAILY [facility] Last Admin: 02/18/17 09:18 Dose: 1 tab Discontinued Medications Bupivacaine HCl (Marcaine 0.25%) Confirm Administered Dose 30 ml .ROUTE .STK- MED ONE Stop: 02/17/17 09:48 Last Admin: 02/17/17 13:05 Dose: 30 ml Cefazolin Sodium (Ancef) Confirm Administered Dose 2 gm .ROUTE .STK-MED ONE Stop: 02/17/17 09:06 Last Admin: 02/17/17 13:02 Dose: 2 gm Cefazolin Sodium (Ancef) Confirm Administered Dose 2 gm .ROUTE .STK-MED ONE Stop: 02/17/17 09:48 Morphine Sulfate 8 mg/Epinephrine HCl 0.3 mg/Cefuroxime Sodium 750 mg/Ketorolac Tromethamine 30 mg/Sodium Chloride 27.9 ml 0 mg .XX ONETIME ONE Stop: 02/17/17 10:46 Last Admin: 02/17/17 13:04 Dose: 788.3 mg Diphenhydramine HCl (Benadryl) 25 mg IVPUSH Q6H PRN PRN Reason: pruritis Stop: 02/17/17 18:00 Diphtheria/Tetanus/Acell Pertussis (Boostrix) 0.5 ml IM .ONCE ONE Stop: 02/17/17 09:52 Enoxaparin Sodium (Lovenox) 40 mg SUBCUT DAILY [facility] Ephedrine Sulfate (Ephedrine In Ns) Confirm Administered Dose 25 mg .ROUTE .STK- MED ONE Stop: 02/17/17 12:17 Ephedrine Sulfate (Ephedrine In Ns) Confirm Administered Dose 25 mg .ROUTE .STK- MED ONE Stop: 02/17/17 13:32 Famotidine (Pepcid) 20 mg PO BID [facility] Last Admin: 02/17/17 21:09 Dose: 20 mg Fentanyl (Sublimaze) 50 mcg IVPUSH Q5M PRN PRN Reason: Pain Stop: 02/17/17 18:00 Lactated Ringer's (Ringers, Lactated) 1,000 mls @ 125 mls/hr IV ASDIRECTED [facility] Stop: 02/17/17 23:00 Last Admin: 02/17/17 09:10 Dose: 125 mls/hr Sodium Chloride (Normal Saline) Confirm Administered Dose 1,000 mls @ as directed .ROUTE .STK-MED ONE Stop: 02/17/17 11:51 Lidocaine HCl (Xylocaine-Mpf 1%) Confirm Administered Dose 4 mls @ as directed .ROUTE .STK-MED ONE Stop: 02/17/17 12:05 Cefazolin Sodium/Dextrose 2 gm (/ Premix) 50 mls @ 100 mls/hr IV Q8H [facility] Stop: 02/18/17 12:59 Last Admin: 02/18/17 12:54 Dose: 100 mls/hr Iodine (Iodine 2% Mild Tincture) Confirm Administered Dose 30 ml .ROUTE .STK- MED ONE Stop: 02/17/17 09:48 Last Admin: 02/17/17 13:00 Dose: 18 ml Lidocaine/Sodium Bicarbonate (Buffered Lidocaine 1% In Ns 8.4%) 0.25 ml .XX ONETIME PRN PRN Reason: Prior to IV Start Stop: 02/17/17 18:00 Last Admin: 02/17/17 09:09 Dose: 0.25 ml Losartan Potassium (Cozaar) 50 mg PO DAILY [facility] Last Admin: 02/18/17 09:18 Dose: 50 mg Midazolam HCl (Versed 1 Mg/Ml) Confirm Administered Dose 2 mg .ROUTE .STK-MED ONE Stop: 02/17/17 09:10 Morphine Sulfate (Duramorph Pf) Confirm Administered Dose 10 mg .ROUTE .STK-MED ONE Stop: 02/17/17 09:18 Naloxone HCl (Narcan) 0.1 mg IVPUSH Q5M PRN PRN Reason: Oversedation Stop: 02/17/17 12:16 Ondansetron HCl (Zofran) 4 mg IVPUSH ONETIME PRN PRN Reason: Nausea/Vomiting Stop: 02/17/17 18:00 Pneumococcal 13-Valent Conj Vacc (Prevnar 13) 0.5 ml IM .ONCE ONE Stop: 02/17/17 09:53 Pneumococcal Polyvalent Vaccine (Pneumovax 23) 0.5 ml IM .ONCE ONE Stop: 02/17/17 16:13 Propofol (Diprivan 20 Ml) Confirm Administered Dose 200 mg .ROUTE .STK-MED ONE Stop: 02/17/17 09:09 Propofol (Diprivan 20 Ml) Confirm Administered Dose 200 mg .ROUTE .STK-MED ONE Stop: 02/17/17 12:50 Sodium Chloride (Saline Flush) 10 ml FLUSH ASDIRECTED PRN PRN Reason: Keep Vein Open Stop: 02/17/17 18:00 Tranexamic Acid (Cyklokapron) Confirm Administered Dose 1,000 mg .ROUTE .STK- MED ONE Stop: 02/17/17 09:47 Last Admin: 02/17/17 13:14 Dose: 1,000 mg - Exam Wound/Incisions: dressing dry and intact General: alert, cooperative, no acute distress Lungs: Normal respiratory effort Extremities: normal pulses, no calf tenderness, other (NVS intact for BLE. Christiano's negative.) - Problem List Review Problem List Initiated/Reviewed/Updated: Yes - My Orders Last 24 Hours: Active Orders 24 hr Category Date Time Status Blood Glucose Check, [facility]side [] [facility] 22:11 Active Heart Healthy Diet [DIET] Diet 02/18/17 Breakfast Active CBC W/O DIFF,HEMOGRAM [HEME] MOTH@0700 Lab 02/20/17 07:00 Ordered CBC W/O DIFF,HEMOGRAM [HEME] MOTH@0700 Lab 02/24/17 07:00 Ordered CBC W/O DIFF,HEMOGRAM [HEME] MOTH@0700 Lab 02/27/17 07:00 Ordered CBC W/O DIFF,HEMOGRAM [HEME] MOTH@0700 Lab 03/03/17 07:00 Ordered CBC W/O DIFF,HEMOGRAM [HEME] MOTH@0700 Lab 03/06/17 07:00 Ordered CBC W/O DIFF,HEMOGRAM [HEME] MOTH@0700 Lab 03/10/17 07:00 Ordered Allopurinol [Zyloprim] Med 02/18/17 09:00 Active 100 mg PO DAILY Aspirin [Ecotrin] Med 02/18/17 09:00 Active 325 mg PO BID Calcium Carbonate/Vitamin D3 [Calcium Carbonate/Vitamin Med 02/18/17 09:00 Active D 1500 MG-200 Unit] 1 tab PO DAILY Carvedilol [Coreg] Med 02/18/17 09:00 Active 12.5 mg PO BID Cholecalciferol (Vitamin D3) [Vitamin D3] Med 02/18/17 09:00 Active 1,000 units PO DAILY Cyclobenzaprine [Flexeril] Med 02/17/17 20:36 Active 5 mg PO Q8HR PRN Docusate Sodium [Colace] Med 02/18/17 09:00 Active 100 mg PO BID Furosemide [Lasix] Med 02/18/17 09:00 Active 20 mg PO DAILY Gabapentin [Neurontin] Med 02/18/17 09:00 Active 200 mg PO DAILY Insulin Aspart [NovoLOG] Med 02/18/17 07:00 Active 0 unit SUBCUT TIDMEALS Insulin Detemir [Levemir] Med 02/18/17 21:00 Active 15 unit SUBCUT BEDTIME Insulin Detemir [Levemir] Med 02/18/17 09:00 Active 16 unit SUBCUT DAILY Levothyroxine Med 02/18/17 07:00 Active 25 mcg PO ACBREAKFAST Losartan [Cozaar] Med 02/18/17 21:00 Active 50 mg PO BID Multivitamins,Therapeutic [Thera] Med 02/18/17 07:00 Active 1 each PO WITHBREAKFAST Multivitamins/Min/FA/Lut/Zeax [ICaps MV] Med 02/18/17 09:00 Active 1 tab PO DAILY Pantoprazole [ProTONIX] Med 02/18/17 07:00 Active 40 mg PO DAILY@0700 Rosuvastatin [Crestor] Med 02/18/17 09:00 Active 10 mg PO DAILY Sucralfate [Carafate] Med 02/18/17 21:00 Active 2 gm PO BEDTIME oxyCODONE Med 02/18/17 14:43 Active 5 mg PO Q6H PRN Medication Orders Allopurinol (Zyloprim) 100 mg PO DAILY [facility]ATH[facility] Last Admin: 02/18/17 09:11 Dose: 100 mg Aspirin (Ecotrin) 325 mg PO BID [facility] Last Admin: 02/18/17 09:12 Dose: 325 mg Bisacodyl (Dulcolax) 5 mg PO DAILY PRN PRN Reason: Constipation Calcium Carbonate (Calcium Carbonate/Vitamin D 1500 Mg-200 Unit) 1 tab PO DAILY [facility] Last Admin: 02/18/17 09:18 Dose: 1 tab Carvedilol (Coreg) 12.5 mg PO BID [facility] Last Admin: 02/18/17 09:18 Dose: 12.5 mg Cholecalciferol (Vitamin D3) 1,000 units PO DAILY [facility] Last Admin: 02/18/17 09:11 Dose: 1,000 units Cyclobenzaprine HCl (Flexeril) 5 mg PO Q8HR PRN PRN Reason: Spasms Last Admin: 02/18/17 15:17 Dose: 5 mg Admin: 02/18/17 05:19 Dose: 5 mg Admin: 02/17/17 21:12 Dose: 5 mg Docusate Sodium (Colace) 100 mg PO BID [facility] Last Admin: 02/18/17 09:19 Dose: 100 mg Furosemide (Lasix) 20 mg PO DAILY [facility] Last Admin: 02/18/17 09:17 Dose: 20 mg Gabapentin (Neurontin) 200 mg PO DAILY [facility] Last Admin: 02/18/17 09:10 Dose: 200 mg Insulin Aspart (Novolog) 0 unit SUBCUT TIDMEALS [facility] PRN Reason: Protocol Last Admin: 02/18/17 12:52 Dose: 2 units Admin: 02/18/17 09:12 Dose: 2 units Insulin Detemir (Levemir) 16 unit SUBCUT DAILY [facility] Last Admin: 02/18/17 09:15 Dose: 16 units Insulin Detemir (Levemir) 15 unit SUBCUT BEDTIME [facility] Levothyroxine Sodium (Levothyroxine) 25 mcg PO ACBREAKFAST [facility] Last Admin: 02/18/17 12:54 Dose: Not Given Losartan Potassium (Cozaar) 50 mg PO BID [facility] Magnesium Hydroxide (Milk Of Magnesia) 30 ml PO BID PRN PRN Reason: Constipation Morphine Sulfate (Morphine) 2 mg IVPUSH Q2H PRN PRN Reason: Breakthrough Pain Last Admin: 02/18/17 13:05 Dose: 2 mg Admin: 02/18/17 10:35 Dose: 2 mg Multivitamins (Thera) 1 each PO WITHBREAKFAST [facility] Last Admin: 02/18/17 06:53 Dose: 1 each Ondansetron HCl (Zofran) 4 mg IVPUSH Q6H PRN PRN Reason: Nausea/Vomiting Oxycodone HCl (Oxycodone) 5 mg PO Q6H PRN PRN Reason: Pain (moderate 4-6) Last Admin: 02/18/17 15:18 Dose: 5 mg Oxycodone/Acetaminophen (Percocet 325-5 Mg) 1 - 2 tab PO Q4H PRN PRN Reason: Pain Last Admin: 02/18/17 09:09 Dose: 2 tab Admin: 02/18/17 04:29 Dose: 2 tab Admin: 02/17/17 23:11 Dose: 2 tab Admin: 02/17/17 18:54 Dose: 2 tab Pantoprazole Sodium (Protonix) 40 mg PO DAILY@0700 [facility] Last Admin: 02/18/17 09:17 Dose: 40 mg Rosuvastatin Calcium (Crestor) 10 mg PO DAILY [facility] Last Admin: 02/18/17 09:10 Dose: 10 mg Senna (Senna) 8.6 mg PO BID PRN PRN Reason: Constipation Sucralfate (Carafate) 2 gm PO BEDTIME [facility] Vit A/Vit C/Vit E/Selen/Cu/Zn/Lutei (Icaps Mv) 1 tab PO DAILY [facility] Last Admin: 02/18/17 09:18 Dose: 1 tab - Assessment Assessment (Free Text/Narrative):: POD#1 -left TKA - Plan Plan (Free Text/Narrative):: 1. The pt will remain in Hospital while awaiting NH placement and for continued therapy and monitoring. 2. 325mg ASA BID. 3. Medical management per Hospitalist service. The pt's blood sugars are closely monitored. 4. Suspect discharge to OR on 02-20-2017. 5. Hgb 10.7 today. 6. Oxycodone 5mg q 6 hours added to pain management regimen today. The pt's case was discussed with Dr. Brothers today.
[2017-02-18] MEDS: Sucralfate 1 GM Tab PO SCH (20:52)
[2017-02-18] MEDS: Losartan 25 MG Tab PO SCH (20:53)
[2017-02-19] MEDS: Acetaminophen/oxyCODONE 325-5 MG Tab PO PRN ×3 (02:52→20:02)
[2017-02-19] MEDS: Pantoprazole 40 MG Tab.CR PO SCH (06:18)
[2017-02-19] MEDS: Cyclobenzaprine 10 MG Tab PO PRN ×2 (06:18→16:34)
[2017-02-19] MEDS: Multivitamins,Therapeutic Tab PO SCH (06:19)
[2017-02-19] MEDS: oxyCODONE 5 MG Tab PO PRN (06:19)
[2017-02-19] MEDS: Levothyroxine 25 MCG Tab PO SCH (06:19)
[2017-02-19] MEDS: Insulin Aspart 100 Units/ML 3 ML Pen SUBCUT SCH ×4 (07:39→21:47)
[2017-02-19] MEDS: Gabapentin 100 MG Cap PO SCH (08:07)
[2017-02-19] MEDS: Docusate Sodium 100 MG Cap PO SCH ×2 (08:07→20:03)
[2017-02-19] MEDS: Calcium Carbonate/Vitamin D3 1500 MG-200 Units Tab PO SCH (08:07)
[2017-02-19] MEDS: Cholecalciferol (Vitamin D3) 1,000 Unit Tab PO SCH (08:08)
[2017-02-19] MEDS: Furosemide 20 MG Tab PO SCH (08:08)
[2017-02-19] MEDS: Rosuvastatin 10 MG Tab PO SCH (08:08)
[2017-02-19] MEDS: Losartan 25 MG Tab PO SCH ×2 (08:08→20:03)
[2017-02-19] MEDS: Carvedilol 12.5 MG Tab PO SCH ×2 (08:08→20:03)
[2017-02-19] MEDS: Allopurinol 100 MG Tab PO SCH (08:09)
[2017-02-19] MEDS: Multivitamins with Minerals/Folic Acid/Lutein/Zeaxanth Tab PO SCH (08:09)
[2017-02-19] MEDS: Aspirin 325 MG Tab.EC PO SCH ×2 (08:09→20:03)
[2017-02-19] MEDS: Insulin Detemir 100 Units/ML 3 ML Pen SUBCUT SCH ×2 (08:09→20:04)
[2017-02-19] MEDS ORDERED: hydrALAZINE 10 MG Tab PO PRN (09:06)
--- NOTE | 2017-02-19 09:12 | PCM.CONSN ---
- General Info Date of Service: 02/19/17 Admission Dx/Problem (Free Text): POD #[address] Brothers Pain is somewhat improved with oxycodone, still present. She is doing well with PT/OT. B/P remains elevated despite adjustment, increase in ARB yesterday. Plans for DC to SNF tomorrow Functional Status: Reports: pain controlled, tolerating diet, ambulating, urinating. Denies: new symptoms - Review of Systems General: Reports: No Symptoms HEENT: Reports: no symptoms Pulmonary: Reports: no symptoms Cardiovascular: Reports: No Symptoms Gastrointestinal: Reports: No symptoms Genitourinary: Reports: no symptoms Musculoskeletal: Reports: leg pain Skin: Reports: no symptoms Neurological: Reports: No Symptoms Psychiatric: Reports: no symptoms - Patient Data Vitals - most recent: Last Vital Signs Temp 98.2 F 02/19/17 07:36 Pulse 93 02/19/17 08:08 Resp 18 02/19/17 07:36 BP 162/79 H 02/19/17 08:08 Pulse Ox 93 L 02/19/17 07:36 Weight - most recent: 236 lb I&O - last 24 hours: Intake & Output 02/18/17 02/19/17 02/19/17 22:59 06:59 14:59 Intake Total 750 300 Output Total 1300 1400 Balance -550 -1100 Lab Results last 24 hrs: Laboratory Results - last 24 hr 02/18/17 02/18/17 02/18/17 Range/Units 10:51 17:11 20:57 POC Glucose 209 H 213 H 235 H (83-110) mg/dL 02/19/17 Range/Units 06:25 POC Glucose 199 H (83-110) mg/dL Med Orders - Current: Current Medications Allopurinol (Zyloprim) 100 mg PO DAILY [facility] Last Admin: 02/19/17 08:09 Dose: 100 mg Aspirin (Ecotrin) 325 mg PO BID [facility] Last Admin: 02/19/17 08:09 Dose: 325 mg Bisacodyl (Dulcolax) 5 mg PO DAILY PRN PRN Reason: Constipation Calcium Carbonate (Calcium Carbonate/Vitamin D 1500 Mg-200 Unit) 1 tab PO DAILY [facility] Last Admin: 02/19/17 08:07 Dose: 1 tab Carvedilol (Coreg) 25 mg PO BID [facility] Cholecalciferol (Vitamin D3) 1,000 units PO DAILY [facility] Last Admin: 02/19/17 08:08 Dose: 1,000 units Cyclobenzaprine HCl (Flexeril) 5 mg PO Q8HR PRN PRN Reason: Spasms Last Admin: 02/19/17 06:18 Dose: 5 mg Docusate Sodium (Colace) 100 mg PO BID [facility] Last Admin: 02/19/17 08:07 Dose: 100 mg Furosemide (Lasix) 20 mg PO DAILY [facility] Last Admin: 02/19/17 08:08 Dose: 20 mg Gabapentin (Neurontin) 200 mg PO DAILY [facility] Last Admin: 02/19/17 08:07 Dose: 200 mg Hydralazine HCl (Apresoline) 10 mg PO Q4H PRN PRN Reason: Hypertension Insulin Aspart (Novolog) 0 unit SUBCUT TIDMEALS [facility] PRN Reason: Protocol Last Admin: 02/19/17 07:39 Dose: 1 units Insulin Detemir (Levemir) 16 unit SUBCUT DAILY [facility] Last Admin: 02/19/17 08:09 Dose: 16 units Insulin Detemir (Levemir) 15 unit SUBCUT BEDTIME [facility] Last Admin: 02/18/17 20:57 Dose: 15 units Levothyroxine Sodium (Levothyroxine) 25 mcg PO ACBREAKFAST [facility] Last Admin: 02/19/17 06:19 Dose: 25 mcg Losartan Potassium (Cozaar) 50 mg PO BID [facility] Last Admin: 02/19/17 08:08 Dose: 50 mg Magnesium Hydroxide (Milk Of Magnesia) 30 ml PO BID PRN PRN Reason: Constipation Morphine Sulfate (Morphine) 2 mg IVPUSH Q2H PRN PRN Reason: Breakthrough Pain Last Admin: 02/18/17 13:05 Dose: 2 mg Multivitamins (Thera) 1 each PO WITHBREAKFAST [facility] Last Admin: 02/19/17 06:19 Dose: 1 each Ondansetron HCl (Zofran) 4 mg IVPUSH Q6H PRN PRN Reason: Nausea/Vomiting Oxycodone HCl (Oxycodone) 5 mg PO Q6H PRN PRN Reason: Pain (moderate 4-6) Last Admin: 02/19/17 06:19 Dose: 5 mg Oxycodone/Acetaminophen (Percocet 325-5 Mg) 1 - 2 tab PO Q4H PRN PRN Reason: Pain Last Admin: 02/19/17 02:52 Dose: 2 tab Pantoprazole Sodium (Protonix) 40 mg PO DAILY@0700 [facility] Last Admin: 02/19/17 06:18 Dose: 40 mg Rosuvastatin Calcium (Crestor) 10 mg PO DAILY [facility] Last Admin: 02/19/17 08:08 Dose: 10 mg Senna (Senna) 8.6 mg PO BID PRN PRN Reason: Constipation Sucralfate (Carafate) 2 gm PO BEDTIME [facility] Last Admin: 02/18/17 20:52 Dose: 2 gm Vit A/Vit C/Vit E/Selen/Cu/Zn/Lutei (Icaps Mv) 1 tab PO DAILY [facility] Last Admin: 02/19/17 08:09 Dose: 1 tab Discontinued Medications Bupivacaine HCl (Marcaine 0.25%) Confirm Administered Dose 30 ml .ROUTE .STK- MED ONE Stop: 02/17/17 09:48 Last Admin: 02/17/17 13:05 Dose: 30 ml Carvedilol (Coreg) 12.5 mg PO BID [facility] Last Admin: 02/19/17 08:08 Dose: 12.5 mg Cefazolin Sodium (Ancef) Confirm Administered Dose 2 gm .ROUTE .STK-MED ONE Stop: 02/17/17 09:06 Last Admin: 02/17/17 13:02 Dose: 2 gm Cefazolin Sodium (Ancef) Confirm Administered Dose 2 gm .ROUTE .STK-MED ONE Stop: 02/17/17 09:48 Morphine Sulfate 8 mg/Epinephrine HCl 0.3 mg/Cefuroxime Sodium 750 mg/Ketorolac Tromethamine 30 mg/Sodium Chloride 27.9 ml 0 mg .XX ONETIME ONE Stop: 02/17/17 10:46 Last Admin: 02/17/17 13:04 Dose: 788.3 mg Diphenhydramine HCl (Benadryl) 25 mg IVPUSH Q6H PRN PRN Reason: pruritis Stop: 02/17/17 18:00 Diphtheria/Tetanus/Acell Pertussis (Boostrix) 0.5 ml IM .ONCE ONE Stop: 02/17/17 09:52 Enoxaparin Sodium (Lovenox) 40 mg SUBCUT DAILY [facility] Ephedrine Sulfate (Ephedrine In Ns) Confirm Administered Dose 25 mg .ROUTE .STK- MED ONE Stop: 02/17/17 12:17 Ephedrine Sulfate (Ephedrine In Ns) Confirm Administered Dose 25 mg .ROUTE .STK- MED ONE Stop: 02/17/17 13:32 Famotidine (Pepcid) 20 mg PO BID [facility] Last Admin: 02/17/17 21:09 Dose: 20 mg Fentanyl (Sublimaze) 50 mcg IVPUSH Q5M PRN PRN Reason: Pain Stop: 02/17/17 18:00 Lactated Ringer's (Ringers, Lactated) 1,000 mls @ 125 mls/hr IV ASDIRECTED [facility] Stop: 02/17/17 23:00 Last Admin: 02/17/17 09:10 Dose: 125 mls/hr Sodium Chloride (Normal Saline) Confirm Administered Dose 1,000 mls @ as directed .ROUTE .STK-MED ONE Stop: 02/17/17 11:51 Lidocaine HCl (Xylocaine-Mpf 1%) Confirm Administered Dose 4 mls @ as directed .ROUTE .STK-MED ONE Stop: 02/17/17 12:05 Cefazolin Sodium/Dextrose 2 gm (/ Premix) 50 mls @ 100 mls/hr IV Q8H [facility] Stop: 02/18/17 12:59 Last Admin: 02/18/17 12:54 Dose: 100 mls/hr Iodine (Iodine 2% Mild Tincture) Confirm Administered Dose 30 ml .ROUTE .STK- MED ONE Stop: 02/17/17 09:48 Last Admin: 02/17/17 13:00 Dose: 18 ml Lidocaine/Sodium Bicarbonate (Buffered Lidocaine 1% In Ns 8.4%) 0.25 ml .XX ONETIME PRN PRN Reason: Prior to IV Start Stop: 02/17/17 18:00 Last Admin: 02/17/17 09:09 Dose: 0.25 ml Losartan Potassium (Cozaar) 50 mg PO DAILY [facility] Last Admin: 02/18/17 09:18 Dose: 50 mg Midazolam HCl (Versed 1 Mg/Ml) Confirm Administered Dose 2 mg .ROUTE .STK-MED ONE Stop: 02/17/17 09:10 Morphine Sulfate (Duramorph Pf) Confirm Administered Dose 10 mg .ROUTE .STK-MED ONE Stop: 02/17/17 09:18 Naloxone HCl (Narcan) 0.1 mg IVPUSH Q5M PRN PRN Reason: Oversedation Stop: 02/17/17 12:16 Ondansetron HCl (Zofran) 4 mg IVPUSH ONETIME PRN PRN Reason: Nausea/Vomiting Stop: 02/17/17 18:00 Pneumococcal 13-Valent Conj Vacc (Prevnar 13) 0.5 ml IM .ONCE ONE Stop: 02/17/17 09:53 Pneumococcal Polyvalent Vaccine (Pneumovax 23) 0.5 ml IM .ONCE ONE Stop: 02/17/17 16:13 Last Admin: 02/18/17 20:12 Dose: Not Given Propofol (Diprivan 20 Ml) Confirm Administered Dose 200 mg .ROUTE .STK-MED ONE Stop: 02/17/17 09:09 Propofol (Diprivan 20 Ml) Confirm Administered Dose 200 mg .ROUTE .STK-MED ONE Stop: 02/17/17 12:50 Sodium Chloride (Saline Flush) 10 ml FLUSH ASDIRECTED PRN PRN Reason: Keep Vein Open Stop: 02/17/17 18:00 Tranexamic Acid (Cyklokapron) Confirm Administered Dose 1,000 mg .ROUTE .STK- MED ONE Stop: 02/17/17 09:47 Last Admin: 02/17/17 13:14 Dose: 1,000 mg - Exam Quality Assessment: DVT prophylaxis General: alert, oriented, cooperative, no acute distress HEENT: Pupils equal, Pupils reactive, EOMI, Mucous membr. moist/pink Neck: supple Lungs: Clear to auscultation, Normal respiratory effort, Decreased breath sounds (bases bilat) Cardiovascular: Regular Rate, Regular Rhythm Abdomen: bowel sounds present, soft, no tenderness, no distension (Female) Exam: Deferred Extremities: other (teds/SCD's bilat) Peripheral Pulses: 1+: Dorsalis Pedis (L), Dorsalis Pedis (R) Neurological: no new focal deficit Psy/Mental Status: alert, normal affect, normal mood Consult PN Assessment/Plan POD#: 2 Procedures: Procedures ARTHROSCOP ROTATOR CUFF REPR (07/07/14) ASSAY OF MAGNESIUM (07/07/14) CANALITH REPOSITIONING PROC (03/07/15) COMPLETE CBC W/AUTO DIFF WBC (07/07/14) CT HEAD/BRAIN W/O DYE (04/03/15) ECG MONIT/REPRT UP TO 48 HRS (04/03/15) ECG MONIT/REPRT UP TO 48 HRS (04/03/15) ELECTROCARDIOGRAM TRACING (07/07/14) EVALUATE PT USE OF INHALER (07/07/14) GLUCOSE BLOOD TEST (07/07/14) MANUAL THERAPY 1/> REGIONS (10/24/16) MASSAGE THERAPY (03/27/15) METABOLIC PANEL TOTAL CA (07/07/14) MR-STAPH DNA AMP PROBE (02/05/17) MRI JOINT UPR EXTREM W/O DYE (04/28/14) NEUROMUSCULAR REEDUCATION (03/27/15) OT EVALUATION (02/11/14) PT EVAL MOD COMPLEX 30 MIN (10/03/16) PT EVALUATION (03/07/15) ROUTINE VENIPUNCTURE (07/07/14) SHOULDER ARTHROSCOPY/SURGERY (07/07/14) SHOULDER ARTHROSCOPY/SURGERY (07/07/14) THERAPEUTIC ACTIVITIES (02/22/14) THERAPEUTIC EXERCISES (10/24/16) THROMBOPLASTIN TIME PARTIAL (06/27/14) ULTRASOUND THERAPY (10/24/16) (1) S/P total knee arthroplasty SNOMED Code(s): 5501210195302, 796578891, 6943059002221 Code(s): Z96.659 - PRESENCE OF UNSPECIFIED ARTIFICIAL KNEE JOINT Priority: High Current Visit: Yes Qualifiers: Laterality: left Qualified Code(s): Z96.652 - Presence of left artificial knee joint (2) Osteoarthritis SNOMED Code(s): 727041639 Code(s): M19.90 - UNSPECIFIED OSTEOARTHRITIS, UNSPECIFIED SITE Priority: High Current Visit: Yes Qualifiers: Osteoarthritis location: knee Osteoarthritis type: primary Laterality: left Qualified Code(s): M17.12 - Unilateral primary osteoarthritis, left knee (3) HTN, Benign essential hypertension SNOMED Code(s): 6820367 Code(s): I10 - ESSENTIAL (PRIMARY) HYPERTENSION Priority: High Current Visit: Yes (4) Diabetes mellitus SNOMED Code(s): 49939254 Code(s): E11.9 - TYPE 2 DIABETES MELLITUS WITHOUT COMPLICATIONS Priority: Medium Current Visit: Yes (5) Afib, Atrial fibrillation SNOMED Code(s): 59222039 Code(s): I48.91 - UNSPECIFIED ATRIAL FIBRILLATION Priority: Medium Current Visit: No Problem List Initiated/Reviewed/Updated: Yes My Orders last 24 hours: My Active Orders 02/18/17 09:00 Allopurinol [Zyloprim] 100 mg PO DAILY Calcium Carbonate/Vitamin D3 [Calcium Carbonate/Vitamin D 1500 MG-200 Unit] 1 tab PO DAILY Carvedilol [Coreg] 12.5 mg PO BID Cholecalciferol (Vitamin D3) [Vitamin D3] 1,000 units PO DAILY Furosemide [Lasix] 20 mg PO DAILY Gabapentin [Neurontin] 200 mg PO DAILY Insulin Detemir [Levemir] 16 unit SUBCUT DAILY Multivitamins/Min/FA/Lut/Zeax [ICaps MV] 1 tab PO DAILY Rosuvastatin [Crestor] 10 mg PO DAILY 02/18/17 21:00 Insulin Detemir [Levemir] 15 unit SUBCUT BEDTIME Losartan [Cozaar] 50 mg PO BID Sucralfate [Carafate] 2 gm PO BEDTIME 02/19/17 09:03 BASIC METABOLIC PANEL,BMP [CHEM] Routine CBC WITH AUTO DIFF [HEME] Routine 02/19/17 09:04 MAGNESIUM [CHEM] Routine 02/19/17 09:06 hydrALAZINE [Apresoline] 10 mg PO Q4H PRN 02/19/17 21:00 Carvedilol [Coreg] 25 mg PO BID 02/20/17 07:00 CBC W/O DIFF,HEMOGRAM [HEME] MOTH@0700 02/24/17 07:00 CBC W/O DIFF,HEMOGRAM [HEME] MOTH@0700 02/27/17 07:00 CBC W/O DIFF,HEMOGRAM [HEME] MOTH@0700 03/03/17 07:00 CBC W/O DIFF,HEMOGRAM [HEME] MOTH@0700 03/06/17 07:00 CBC W/O DIFF,HEMOGRAM [HEME] MOTH@0700 03/10/17 07:00 CBC W/O DIFF,HEMOGRAM [HEME] MOTH@0700 Plan: POD #[address] Brothers -Pain management and DVT prophylax per Ortho team -PT/OT -IS/RT -Hgb stable -Plans for dc to SNF for rehab stay, likely tomorrow Chronic: HTN- elevated increased ARB dosing yesterday; HR also elevated, 90-100's will increase BB dose to 25mg BID Afib- rate controlled DM- sugars controlled thus far during stay; A1C preop was 7.4; resume home meds , hold metformin for now Other: GI prophylax- resume home PPI CM/SW for assist with DC planning/SNF placement Patient is Full Code
--- NOTE | 2017-02-19 09:30 | PCM.SURGPN ---
- General Info Date of Service: 02/19/17 POD#: 2 Functional Status: Reports: pain controlled, tolerating diet, ambulating, urinating, other (The pt reports she her pain is under better control today.). Denies: new symptoms - Patient Data Vitals - most recent: Last Vital Signs Temp 98.2 F 02/19/17 07:36 Pulse 93 02/19/17 08:08 Resp 18 02/19/17 07:36 BP 162/79 H 02/19/17 08:08 Pulse Ox 93 L 02/19/17 07:36 Weight - most recent: 236 lb I&O - last 24 hours: Intake & Output 02/18/17 02/19/17 02/19/17 22:59 06:59 14:59 Intake Total 750 300 Output Total 1300 1400 Balance -550 -1100 Lab Results last 24 hrs: Laboratory Results - last 24 hr 02/18/17 02/18/17 02/18/17 Range/Units 10:51 17:11 20:57 POC Glucose 209 H 213 H 235 H (83-110) mg/dL 02/19/17 Range/Units 06:25 POC Glucose 199 H (83-110) mg/dL Med Orders - Current: Current Medications Allopurinol (Zyloprim) 100 mg PO DAILY PENDING SALE TO [facility] Last Admin: 02/19/17 08:09 Dose: 100 mg Aspirin (Ecotrin) 325 mg PO BID PENDING SALE TO [facility] Last Admin: 02/19/17 08:09 Dose: 325 mg Bisacodyl (Dulcolax) 5 mg PO DAILY PRN PRN Reason: Constipation Calcium Carbonate (Calcium Carbonate/Vitamin D 1500 Mg-200 Unit) 1 tab PO DAILY PENDING SALE TO [facility] Last Admin: 02/19/17 08:07 Dose: 1 tab Carvedilol (Coreg) 25 mg PO BID PENDING SALE TO [facility] Cholecalciferol (Vitamin D3) 1,000 units PO DAILY PENDING SALE TO [facility] Last Admin: 02/19/17 08:08 Dose: 1,000 units Cyclobenzaprine HCl (Flexeril) 5 mg PO Q8HR PRN PRN Reason: Spasms Last Admin: 02/19/17 06:18 Dose: 5 mg Docusate Sodium (Colace) 100 mg PO BID PENDING SALE TO [facility] Last Admin: 02/19/17 08:07 Dose: 100 mg Furosemide (Lasix) 20 mg PO DAILY PENDING SALE TO [facility] Last Admin: 02/19/17 08:08 Dose: 20 mg Gabapentin (Neurontin) 200 mg PO DAILY PENDING SALE TO [facility] Last Admin: 02/19/17 08:07 Dose: 200 mg Hydralazine HCl (Apresoline) 10 mg PO Q4H PRN PRN Reason: Hypertension Insulin Aspart (Novolog) 0 unit SUBCUT TIDMEALS PENDING SALE TO [facility] PRN Reason: Protocol Last Admin: 02/19/17 07:39 Dose: 1 units Insulin Detemir (Levemir) 16 unit SUBCUT DAILY PENDING SALE TO [facility] Last Admin: 02/19/17 08:09 Dose: 16 units Insulin Detemir (Levemir) 15 unit SUBCUT BEDTIME PENDING SALE TO [facility] Last Admin: 02/18/17 20:57 Dose: 15 units Levothyroxine Sodium (Levothyroxine) 25 mcg PO ACBREAKFAST PENDING SALE TO [facility] Last Admin: 02/19/17 06:19 Dose: 25 mcg Losartan Potassium (Cozaar) 50 mg PO BID PENDING SALE TO [facility] Last Admin: 02/19/17 08:08 Dose: 50 mg Magnesium Hydroxide (Milk Of Magnesia) 30 ml PO BID PRN PRN Reason: Constipation Morphine Sulfate (Morphine) 2 mg IVPUSH Q2H PRN PRN Reason: Breakthrough Pain Last Admin: 02/18/17 13:05 Dose: 2 mg Multivitamins (Thera) 1 each PO WITHBREAKFAST PENDING SALE TO [facility] Last Admin: 02/19/17 06:19 Dose: 1 each Ondansetron HCl (Zofran) 4 mg IVPUSH Q6H PRN PRN Reason: Nausea/Vomiting Oxycodone HCl (Oxycodone) 5 mg PO Q6H PRN PRN Reason: Pain (moderate 4-6) Last Admin: 02/19/17 06:19 Dose: 5 mg Oxycodone/Acetaminophen (Percocet 325-5 Mg) 1 - 2 tab PO Q4H PRN PRN Reason: Pain Last Admin: 02/19/17 02:52 Dose: 2 tab Pantoprazole Sodium (Protonix) 40 mg PO DAILY@0700 PENDING SALE TO [facility] Last Admin: 02/19/17 06:18 Dose: 40 mg Rosuvastatin Calcium (Crestor) 10 mg PO DAILY PENDING SALE TO [facility] Last Admin: 02/19/17 08:08 Dose: 10 mg Senna (Senna) 8.6 mg PO BID PRN PRN Reason: Constipation Sucralfate (Carafate) 2 gm PO BEDTIME PENDING SALE TO [facility] Last Admin: 02/18/17 20:52 Dose: 2 gm Vit A/Vit C/Vit E/Selen/Cu/Zn/Lutei (Icaps Mv) 1 tab PO DAILY PENDING SALE TO [facility] Last Admin: 02/19/17 08:09 Dose: 1 tab Discontinued Medications Bupivacaine HCl (Marcaine 0.25%) Confirm Administered Dose 30 ml .ROUTE .STK- MED ONE Stop: 02/17/17 09:48 Last Admin: 02/17/17 13:05 Dose: 30 ml Carvedilol (Coreg) 12.5 mg PO BID PENDING SALE TO [facility] Last Admin: 02/19/17 08:08 Dose: 12.5 mg Cefazolin Sodium (Ancef) Confirm Administered Dose 2 gm .ROUTE .STK-MED ONE Stop: 02/17/17 09:06 Last Admin: 02/17/17 13:02 Dose: 2 gm Cefazolin Sodium (Ancef) Confirm Administered Dose 2 gm .ROUTE .STK-MED ONE Stop: 02/17/17 09:48 Morphine Sulfate 8 mg/Epinephrine HCl 0.3 mg/Cefuroxime Sodium 750 mg/Ketorolac Tromethamine 30 mg/Sodium Chloride 27.9 ml 0 mg .XX ONETIME ONE Stop: 02/17/17 10:46 Last Admin: 02/17/17 13:04 Dose: 788.3 mg Diphenhydramine HCl (Benadryl) 25 mg IVPUSH Q6H PRN PRN Reason: pruritis Stop: 02/17/17 18:00 Diphtheria/Tetanus/Acell Pertussis (Boostrix) 0.5 ml IM .ONCE ONE Stop: 02/17/17 09:52 Enoxaparin Sodium (Lovenox) 40 mg SUBCUT DAILY PENDING SALE TO [facility] Ephedrine Sulfate (Ephedrine In Ns) Confirm Administered Dose 25 mg .ROUTE .STK- MED ONE Stop: 02/17/17 12:17 Ephedrine Sulfate (Ephedrine In Ns) Confirm Administered Dose 25 mg .ROUTE .STK- MED ONE Stop: 02/17/17 13:32 Famotidine (Pepcid) 20 mg PO BID PENDING SALE TO [facility] Last Admin: 02/17/17 21:09 Dose: 20 mg Fentanyl (Sublimaze) 50 mcg IVPUSH Q5M PRN PRN Reason: Pain Stop: 02/17/17 18:00 Lactated Ringer's (Ringers, Lactated) 1,000 mls @ 125 mls/hr IV ASDIRECTED PENDING SALE TO [facility] Stop: 02/17/17 23:00 Last Admin: 02/17/17 09:10 Dose: 125 mls/hr Sodium Chloride (Normal Saline) Confirm Administered Dose 1,000 mls @ as directed .ROUTE .[facility] Stop: 02/17/17 11:51 Lidocaine HCl (Xylocaine-Mpf 1%) Confirm Administered Dose 4 mls @ as directed .ROUTE .[facility] Stop: 02/17/17 12:05 Cefazolin Sodium/Dextrose 2 gm (/ Premix) 50 mls @ 100 mls/hr IV Q8H PENDING SALE TO [facility] Stop: 02/18/17 12:59 Last Admin: 02/18/17 12:54 Dose: 100 mls/hr Iodine (Iodine 2% Mild Tincture) Confirm Administered Dose 30 ml .ROUTE .[facility] Stop: 02/17/17 09:48 Last Admin: 02/17/17 13:00 Dose: 18 ml Lidocaine/Sodium Bicarbonate (Buffered Lidocaine 1% In Ns 8.4%) 0.25 ml .XX ONETIME PRN PRN Reason: Prior to IV Start Stop: 02/17/17 18:00 Last Admin: 02/17/17 09:09 Dose: 0.25 ml Losartan Potassium (Cozaar) 50 mg PO DAILY PENDING SALE TO [facility] Last Admin: 02/18/17 09:18 Dose: 50 mg Midazolam HCl (Versed 1 Mg/Ml) Confirm Administered Dose 2 mg .ROUTE .[facility] Stop: 02/17/17 09:10 Morphine Sulfate (Duramorph Pf) Confirm Administered Dose 10 mg .ROUTE .ST-MED ONE Stop: 02/17/17 09:18 Naloxone HCl (Narcan) 0.1 mg IVPUSH Q5M PRN PRN Reason: Oversedation Stop: 02/17/17 12:16 Ondansetron HCl (Zofran) 4 mg IVPUSH ONETIME PRN PRN Reason: Nausea/Vomiting Stop: 02/17/17 18:00 Pneumococcal 13-Valent Conj Vacc (Prevnar 13) 0.5 ml IM .ONCE ONE Stop: 02/17/17 09:53 Pneumococcal Polyvalent Vaccine (Pneumovax 23) 0.5 ml IM .ONCE ONE Stop: 02/17/17 16:13 Last Admin: 02/18/17 20:12 Dose: Not Given Propofol (Diprivan 20 Ml) Confirm Administered Dose 200 mg .ROUTE .STK-MED ONE Stop: 02/17/17 09:09 Propofol (Diprivan 20 Ml) Confirm Administered Dose 200 mg .ROUTE .STK-MED ONE Stop: 02/17/17 12:50 Sodium Chloride (Saline Flush) 10 ml FLUSH ASDIRECTED PRN PRN Reason: Keep Vein Open Stop: 02/17/17 18:00 Tranexamic Acid (Cyklokapron) Confirm Administered Dose 1,000 mg .ROUTE .STK- MED ONE Stop: 02/17/17 09:47 Last Admin: 02/17/17 13:14 Dose: 1,000 mg - Exam Wound/Incisions: dressing dry and intact General: alert, cooperative, no acute distress Lungs: Normal respiratory effort Extremities: normal pulses, no calf tenderness (NVS intact for LLE. Christiano's negative. ) - Problem List Review Problem List Initiated/Reviewed/Updated: Yes - My Orders Last 24 Hours: Active Orders 24 hr Category Date Time Status BASIC METABOLIC PANEL,BMP [CHEM] Routine Lab 02/19/17 09:03 Ordered CBC W/O DIFF,HEMOGRAM [HEME] MOTH@0700 Lab 02/20/17 07:00 Ordered CBC W/O DIFF,HEMOGRAM [HEME] MOTH@0700 Lab 02/24/17 07:00 Ordered CBC W/O DIFF,HEMOGRAM [HEME] MOTH@0700 Lab 02/27/17 07:00 Ordered CBC W/O DIFF,HEMOGRAM [HEME] MOTH@0700 Lab 03/03/17 07:00 Ordered CBC W/O DIFF,HEMOGRAM [HEME] MOTH@0700 Lab 03/06/17 07:00 Ordered CBC W/O DIFF,HEMOGRAM [HEME] MOTH@0700 Lab 03/10/17 07:00 Ordered CBC WITH AUTO DIFF [HEME] Routine Lab 02/19/17 09:03 Ordered MAGNESIUM [CHEM] Routine Lab 02/19/17 09:03 Ordered Allopurinol [Zyloprim] Med 02/18/17 09:00 Active 100 mg PO DAILY Aspirin [Ecotrin] Med 02/18/17 09:00 Active 325 mg PO BID Calcium Carbonate/Vitamin D3 [Calcium Carbonate/Vitamin Med 02/18/17 09:00 Active D 1500 MG-200 Unit] 1 tab PO DAILY Carvedilol [Coreg] Med 02/19/17 21:00 Active 25 mg PO BID Cholecalciferol (Vitamin D3) [Vitamin D3] Med 02/18/17 09:00 Active 1,000 units PO DAILY Docusate Sodium [Colace] Med 02/18/17 09:00 Active 100 mg PO BID Furosemide [Lasix] Med 02/18/17 09:00 Active 20 mg PO DAILY Gabapentin [Neurontin] Med 02/18/17 09:00 Active 200 mg PO DAILY Insulin Detemir [Levemir] Med 02/18/17 21:00 Active 15 unit SUBCUT BEDTIME Insulin Detemir [Levemir] Med 02/18/17 09:00 Active 16 unit SUBCUT DAILY Losartan [Cozaar] Med 02/18/17 21:00 Active 50 mg PO BID Multivitamins/Min/FA/Lut/Zeax [ICaps MV] Med 02/18/17 09:00 Active 1 tab PO DAILY Rosuvastatin [Crestor] Med 02/18/17 09:00 Active 10 mg PO DAILY Sucralfate [Carafate] Med 02/18/17 21:00 Active 2 gm PO BEDTIME hydrALAZINE [Apresoline] Med 02/19/17 09:06 Ordered 10 mg PO Q4H PRN oxyCODONE Med 02/18/17 14:43 Active 5 mg PO Q6H PRN Medication Orders Allopurinol (Zyloprim) 100 mg PO DAILY PENDING SALE TO [facility] Last Admin: 02/19/17 08:09 Dose: 100 mg Admin: 02/18/17 09:11 Dose: 100 mg Aspirin (Ecotrin) 325 mg PO BID PENDING SALE TO [facility] Last Admin: 02/19/17 08:09 Dose: 325 mg Admin: 02/18/17 20:54 Dose: 325 mg Admin: 02/18/17 09:12 Dose: 325 mg Bisacodyl (Dulcolax) 5 mg PO DAILY PRN PRN Reason: Constipation Calcium Carbonate (Calcium Carbonate/Vitamin D 1500 Mg-200 Unit) 1 tab PO DAILY PENDING SALE TO [facility] Last Admin: 02/19/17 08:07 Dose: 1 tab Admin: 02/18/17 09:18 Dose: 1 tab Carvedilol (Coreg) 25 mg PO BID PENDING SALE TO [facility] Cholecalciferol (Vitamin D3) 1,000 units PO DAILY PENDING SALE TO [facility] Last Admin: 02/19/17 08:08 Dose: 1,000 units Admin: 02/18/17 09:11 Dose: 1,000 units Cyclobenzaprine HCl (Flexeril) 5 mg PO Q8HR PRN PRN Reason: Spasms Last Admin: 02/19/17 06:18 Dose: 5 mg Admin: 02/18/17 15:17 Dose: 5 mg Admin: 02/18/17 05:19 Dose: 5 mg Admin: 02/17/17 21:12 Dose: 5 mg Docusate Sodium (Colace) 100 mg PO BID PENDING SALE TO [facility] Last Admin: 02/19/17 08:07 Dose: 100 mg Admin: 02/18/17 20:54 Dose: 100 mg Admin: 02/18/17 09:19 Dose: 100 mg Furosemide (Lasix) 20 mg PO DAILY PENDING SALE TO [facility] Last Admin: 02/19/17 08:08 Dose: 20 mg Admin: 02/18/17 09:17 Dose: 20 mg Gabapentin (Neurontin) 200 mg PO DAILY PENDING SALE TO [facility] Last Admin: 02/19/17 08:07 Dose: 200 mg Admin: 02/18/17 09:10 Dose: 200 mg Hydralazine HCl (Apresoline) 10 mg PO Q4H PRN PRN Reason: Hypertension Insulin Aspart (Novolog) 0 unit SUBCUT TIDMEALS PENDING SALE TO [facility] PRN Reason: Protocol Last Admin: 02/19/17 07:39 Dose: 1 units Admin: 02/18/17 18:17 Dose: 2 units Admin: 02/18/17 12:52 Dose: 2 units Admin: 02/18/17 09:12 Dose: 2 units Insulin Detemir (Levemir) 16 unit SUBCUT DAILY PENDING SALE TO [facility] Last Admin: 02/19/17 08:09 Dose: 16 units Admin: 02/18/17 09:15 Dose: 16 units Insulin Detemir (Levemir) 15 unit SUBCUT BEDTIME PENDING SALE TO [facility] Last Admin: 02/18/17 20:57 Dose: 15 units Levothyroxine Sodium (Levothyroxine) 25 mcg PO ACBREAKFAST PENDING SALE TO [facility] Last Admin: 02/19/17 06:19 Dose: 25 mcg Admin: 02/18/17 12:54 Dose: Not Given Losartan Potassium (Cozaar) 50 mg PO BID PENDING SALE TO [facility] Last Admin: 02/19/17 08:08 Dose: 50 mg Admin: 02/18/17 20:53 Dose: 50 mg Magnesium Hydroxide (Milk Of Magnesia) 30 ml PO BID PRN PRN Reason: Constipation Morphine Sulfate (Morphine) 2 mg IVPUSH Q2H PRN PRN Reason: Breakthrough Pain Last Admin: 02/18/17 13:05 Dose: 2 mg Admin: 02/18/17 10:35 Dose: 2 mg Multivitamins (Thera) 1 each PO WITHBREAKFAST PENDING SALE TO [facility] Last Admin: 02/19/17 06:19 Dose: 1 each Admin: 02/18/17 06:53 Dose: 1 each Ondansetron HCl (Zofran) 4 mg IVPUSH Q6H PRN PRN Reason: Nausea/Vomiting Oxycodone HCl (Oxycodone) 5 mg PO Q6H PRN PRN Reason: Pain (moderate 4-6) Last Admin: 02/19/17 06:19 Dose: 5 mg Admin: 02/18/17 15:18 Dose: 5 mg Oxycodone/Acetaminophen (Percocet 325-5 Mg) 1 - 2 tab PO Q4H PRN PRN Reason: Pain Last Admin: 02/19/17 02:52 Dose: 2 tab Admin: 02/18/17 20:52 Dose: 2 tab Admin: 02/18/17 16:39 Dose: 2 tab Admin: 02/18/17 09:09 Dose: 2 tab Admin: 02/18/17 04:29 Dose: 2 tab Admin: 02/17/17 23:11 Dose: 2 tab Admin: 02/17/17 18:54 Dose: 2 tab Pantoprazole Sodium (Protonix) 40 mg PO DAILY@0700 PENDING SALE TO [facility] Last Admin: 02/19/17 06:18 Dose: 40 mg Admin: 02/18/17 09:17 Dose: 40 mg Rosuvastatin Calcium (Crestor) 10 mg PO DAILY PENDING SALE TO [facility] Last Admin: 02/19/17 08:08 Dose: 10 mg Admin: 02/18/17 09:10 Dose: 10 mg Senna (Senna) 8.6 mg PO BID PRN PRN Reason: Constipation Sucralfate (Carafate) 2 gm PO BEDTIME PENDING SALE TO [facility] Last Admin: 02/18/17 20:52 Dose: 2 gm Vit A/Vit C/Vit E/Selen/Cu/Zn/Lutei (Icaps Mv) 1 tab PO DAILY [facility] Last Admin: 02/19/17 08:09 Dose: 1 tab Admin: 02/18/17 09:18 Dose: 1 tab - Assessment Assessment (Free Text/Narrative):: POD#2 - left TKA - Plan Plan (Free Text/Narrative):: 1. The pt will remain in Hospital greater than 96 hours while she awaits [facility] placement and for continued monitoring and therapy. 2. 325mg ASA BID. 3. Close monitoring of blood sugars per Hospitalist service. 4. Suspect discharge to [facility] tomorrow. The pt's case was discussed with Dr. Brothers.
[2017-02-19] MEDS ORDERED: Magnesium Sulfate/Water 2 GM in Premix Bag 1 BAG IV ONE (13:17)
[2017-02-19] MEDS: Magnesium Oxide 400 MG Tab PO SCH (14:09)
[2017-02-19] MEDS ORDERED: Bisacodyl 10 MG Supp RECTAL PRN (14:12)
[2017-02-19] MEDS: Sucralfate 1 GM Tab PO SCH (20:02)
[2017-02-20] MEDS: oxyCODONE 5 MG Tab PO PRN (00:46)
[2017-02-20] MEDS: Morphine 2 MG/ML Syringe IVPUSH PRN (00:46)
[2017-02-20] MEDS: Multivitamins,Therapeutic Tab PO SCH (06:08)
[2017-02-20] MEDS: Acetaminophen/oxyCODONE 325-5 MG Tab PO PRN (06:08)
[2017-02-20] MEDS: Pantoprazole 40 MG Tab.CR PO SCH (06:08)
[2017-02-20] MEDS: Levothyroxine 25 MCG Tab PO SCH (06:12)
[2017-02-20] MEDS: Insulin Aspart 100 Units/ML 3 ML Pen SUBCUT SCH (06:14)
[2017-02-20 07:41] VITALS: BP 142/72
[2017-02-20] MEDS: Calcium Carbonate/Vitamin D3 1500 MG-200 Units Tab PO SCH (08:21)
[2017-02-20] MEDS: Carvedilol 12.5 MG Tab PO SCH (08:22)
[2017-02-20] MEDS: Docusate Sodium 100 MG Cap PO SCH (08:22)
[2017-02-20] MEDS: Losartan 25 MG Tab PO SCH (08:23)
[2017-02-20] MEDS: Multivitamins with Minerals/Folic Acid/Lutein/Zeaxanth Tab PO SCH (08:24)
[2017-02-20] MEDS: Rosuvastatin 10 MG Tab PO SCH (08:24)
[2017-02-20] MEDS: Furosemide 20 MG Tab PO SCH (08:24)
[2017-02-20] MEDS: Aspirin 325 MG Tab.EC PO SCH (08:24)
[2017-02-20] MEDS: Insulin Detemir 100 Units/ML 3 ML Pen SUBCUT SCH (08:25)
[2017-02-20] MEDS: Gabapentin 100 MG Cap PO SCH (08:26)
[2017-02-20] MEDS: Magnesium Oxide 400 MG Tab PO SCH (08:26)
[2017-02-20] MEDS: Allopurinol 100 MG Tab PO SCH (08:27)
[2017-02-20] MEDS: Cholecalciferol (Vitamin D3) 1,000 Unit Tab PO SCH (08:27)
[2017-02-20] MEDS: Cyclobenzaprine 10 MG Tab PO PRN (08:35)
--- NOTE | 2017-02-20 15:46 | PCM.SURGPN ---
- General Info POD#: 3 Functional Status: Reports: pain controlled, tolerating diet, ambulating, urinating, other (The pt feels prepared for discharge to [facility] today.). Denies: new symptoms - Patient Data Vitals - most recent: Last Vital Signs Temp 97.7 F 02/20/17 07:38 Pulse 83 02/20/17 08:22 Resp 16 02/20/17 07:38 BP 142/72 H 02/20/17 08:23 Pulse Ox 93 L 02/20/17 07:38 Weight - most recent: 236 lb I&O - last 24 hours: Intake & Output 02/20/17 02/20/17 02/20/17 06:59 14:59 22:59 Intake Total 400 960 Output Total 650 300 Balance -250 660 Lab Results last 24 hrs: Laboratory Results - last 24 hr 02/19/17 02/19/17 02/19/17 Range/Units 12:01 17:35 21:27 WBC (3.98-10.04) K/mm3 RBC (3.98-5.22) M/mm3 Hgb (11.2-15.7) gm/L Hct (34.1-44.9) % MCV (79.4-94.8) fl MCH (25.6-32.2) pg MCHC (32.2-35.5) g/dl RDW Std Deviation (36.4-46.3) fL Plt Count (182-369) K/mm3 MPV (9.4-12.3) fl Neut % (Auto) (34.0-71.1) % Lymph % (Auto) (19.3-51.7) % Harrison % (Auto) (4.7-12.5) % Eos % (Auto) (0.7-5.8) Baso % (Auto) (0.1-1.2) % Neut # (Auto) (1.56-6.13) K/mm3 Lymph # (Auto) (1.18-3.74) K/mm3 Harrison # (Auto) (0.24-0.36) K/mm3 Eos # (Auto) (0.04-0.36) K/mm3 Baso # (Auto) (0.01-0.08) K/mm3 Sodium (136-145) mEq/L Potassium (3.5-5.1) mEq/L Chloride (98-107) mEq/L Carbon Dioxide (21-32) mEq/L Anion Gap (5-15) BUN (7-18) mg/dL Creatinine (0.55-1.02) mg/dL Est Cr Clr Drug Dosing mL/min Estimated GFR (MDRD) (>60) mL/min BUN/Creatinine Ratio (14-18) Glucose (83-115) mg/dL POC Glucose 273 H 245 H 221 H (83-110) mg/dL Calcium (8.5-10.1) mg/dL Magnesium (1.8-2.4) mg/dl 02/20/17 02/20/17 02/20/17 Range/Units 05:29 05:29 06:10 WBC 8.07 (3.98-10.04) K/mm3 RBC 3.59 L (3.98-5.22) M/mm3 Hgb 9.8 L (11.2-15.7) gm/L Hct 31.8 L (34.1-44.9) % MCV 88.6 (79.4-94.8) fl MCH 27.3 (25.6-32.2) pg MCHC 30.8 L (32.2-35.5) g/dl RDW Std Deviation 47.7 H (36.4-46.3) fL Plt Count 253 (182-369) K/mm3 MPV 9.6 (9.4-12.3) fl Neut % (Auto) 67.6 (34.0-71.1) % Lymph % (Auto) 18.8 L (19.3-51.7) % Harrison % (Auto) 10.9 (4.7-12.5) % Eos % (Auto) 2.1 (0.7-5.8) Baso % (Auto) 0.4 (0.1-1.2) % Neut # (Auto) 5.45 (1.56-6.13) K/mm3 Lymph # (Auto) 1.52 (1.18-3.74) K/mm3 Harrison # (Auto) 0.88 H (0.24-0.36) K/mm3 Eos # (Auto) 0.17 (0.04-0.36) K/mm3 Baso # (Auto) 0.03 (0.01-0.08) K/mm3 Sodium 136 (136-145) mEq/L Potassium 3.7 (3.5-5.1) mEq/L Chloride 101 (98-107) mEq/L Carbon Dioxide 22 (21-32) mEq/L Anion Gap 16.7 H (5-15) BUN 22 H (7-18) mg/dL Creatinine 1.1 H (0.55-1.02) mg/dL Est Cr Clr Drug Dosing 31.81 mL/min Estimated GFR (MDRD) 48 (>60) mL/min BUN/Creatinine Ratio 20.0 H (14-18) Glucose 170 H (83-115) mg/dL POC Glucose 155 H (83-110) mg/dL Calcium 8.7 (8.5-10.1) mg/dL Magnesium 1.9 (1.8-2.4) mg/dl Med Orders - Current: Current Medications Discontinued Medications Allopurinol (Zyloprim) 100 mg PO DAILY [facility] Last Admin: 02/20/17 08:27 Dose: 100 mg Aspirin (Ecotrin) 325 mg PO BID [facility] Last Admin: 02/20/17 08:24 Dose: 325 mg Bisacodyl (Dulcolax) 5 mg PO DAILY PRN PRN Reason: Constipation Last Admin: 02/19/17 09:58 Dose: 5 mg Bisacodyl (Dulcolax) 10 mg RECTAL DAILY PRN PRN Reason: Constipation Last Admin: 02/19/17 20:03 Dose: 10 mg Bupivacaine HCl (Marcaine 0.25%) Confirm Administered Dose 30 ml .ROUTE .STK- MED ONE Stop: 02/17/17 09:48 Last Admin: 02/17/17 13:05 Dose: 30 ml Calcium Carbonate (Calcium Carbonate/Vitamin D 1500 Mg-200 Unit) 1 tab PO DAILY [facility] Last Admin: 02/20/17 08:21 Dose: 1 tab Carvedilol (Coreg) 12.5 mg PO BID [facility] Last Admin: 02/19/17 08:08 Dose: 12.5 mg Carvedilol (Coreg) 25 mg PO BID [facility] Last Admin: 02/20/17 08:22 Dose: 25 mg Cefazolin Sodium (Ancef) Confirm Administered Dose 2 gm .ROUTE .STK-MED ONE Stop: 02/17/17 09:06 Last Admin: 02/17/17 13:02 Dose: 2 gm Cefazolin Sodium (Ancef) Confirm Administered Dose 2 gm .ROUTE .STK-MED ONE Stop: 02/17/17 09:48 Cholecalciferol (Vitamin D3) 1,000 units PO DAILY [facility] Last Admin: 02/20/17 08:27 Dose: 1,000 units Morphine Sulfate 8 mg/Epinephrine HCl 0.3 mg/Cefuroxime Sodium 750 mg/Ketorolac Tromethamine 30 mg/Sodium Chloride 27.9 ml 0 mg .XX ONETIME ONE Stop: 02/17/17 10:46 Last Admin: 02/17/17 13:04 Dose: 788.3 mg Cyclobenzaprine HCl (Flexeril) 5 mg PO Q8HR PRN PRN Reason: Spasms Last Admin: 02/20/17 08:35 Dose: 5 mg Diphenhydramine HCl (Benadryl) 25 mg IVPUSH Q6H PRN PRN Reason: pruritis Stop: 02/17/17 18:00 Diphtheria/Tetanus/Acell Pertussis (Boostrix) 0.5 ml IM .ONCE ONE Stop: 02/17/17 09:52 Last Admin: 02/20/17 09:57 Dose: 0.5 ml Docusate Sodium (Colace) 100 mg PO BID [facility] Last Admin: 02/20/17 08:22 Dose: 100 mg Enoxaparin Sodium (Lovenox) 40 mg SUBCUT DAILY [facility] Ephedrine Sulfate (Ephedrine In Ns) Confirm Administered Dose 25 mg .ROUTE .STK- MED ONE Stop: 02/17/17 12:17 Ephedrine Sulfate (Ephedrine In Ns) Confirm Administered Dose 25 mg .ROUTE .STK- MED ONE Stop: 02/17/17 13:32 Famotidine (Pepcid) 20 mg PO BID [facility] Last Admin: 02/17/17 21:09 Dose: 20 mg Fentanyl (Sublimaze) 50 mcg IVPUSH Q5M PRN PRN Reason: Pain Stop: 02/17/17 18:00 Furosemide (Lasix) 20 mg PO DAILY [facility] Last Admin: 02/20/17 08:24 Dose: 20 mg Gabapentin (Neurontin) 200 mg PO DAILY [facility] Last Admin: 02/20/17 08:26 Dose: 200 mg Hydralazine HCl (Apresoline) 10 mg PO Q4H PRN PRN Reason: Hypertension Lactated Ringer's (Ringers, Lactated) 1,000 mls @ 125 mls/hr IV ASDIRECTED [facility] Stop: 02/17/17 23:00 Last Admin: 02/17/17 09:10 Dose: 125 mls/hr Sodium Chloride (Normal Saline) Confirm Administered Dose 1,000 mls @ as directed .ROUTE .STK-MED ONE Stop: 02/17/17 11:51 Lidocaine HCl (Xylocaine-Mpf 1%) Confirm Administered Dose 4 mls @ as directed .ROUTE .STK-MED ONE Stop: 02/17/17 12:05 Cefazolin Sodium/Dextrose 2 gm (/ Premix) 50 mls @ 100 mls/hr IV Q8H [facility] Stop: 02/18/17 12:59 Last Admin: 02/18/17 12:54 Dose: 100 mls/hr Magnesium Sulfate 2 gm/ Premix 50 mls @ 25 mls/hr IV ONETIME ONE Stop: 02/19/17 15:16 Last Admin: 02/19/17 14:08 Dose: 25 mls/hr Insulin Aspart (Novolog) 0 unit SUBCUT TIDMEALS [facility] PRN Reason: Protocol Last Admin: 02/19/17 12:03 Dose: 3 units Insulin Aspart (Novolog) 0 unit SUBCUT QIDACANDBED [facility] PRN Reason: Protocol Last Admin: 02/20/17 06:14 Dose: 3 units Insulin Detemir (Levemir) 16 unit SUBCUT DAILY [facility] Last Admin: 02/20/17 08:25 Dose: 16 units Insulin Detemir (Levemir) 15 unit SUBCUT BEDTIME [facility] Last Admin: 02/19/17 20:04 Dose: 15 units Iodine (Iodine 2% Mild Tincture) Confirm Administered Dose 30 ml .ROUTE .STK- MED ONE Stop: 02/17/17 09:48 Last Admin: 02/17/17 13:00 Dose: 18 ml Levothyroxine Sodium (Levothyroxine) 25 mcg PO ACBREAKFAST [facility] Last Admin: 02/20/17 06:12 Dose: 25 mcg Lidocaine/Sodium Bicarbonate (Buffered Lidocaine 1% In Ns 8.4%) 0.25 ml .XX ONETIME PRN PRN Reason: Prior to IV Start Stop: 02/17/17 18:00 Last Admin: 02/17/17 09:09 Dose: 0.25 ml Losartan Potassium (Cozaar) 50 mg PO DAILY [facility] Last Admin: 02/18/17 09:18 Dose: 50 mg Losartan Potassium (Cozaar) 50 mg PO BID [facility] Last Admin: 02/20/17 08:23 Dose: 50 mg Magnesium Hydroxide (Milk Of Magnesia) 30 ml PO BID PRN PRN Reason: Constipation Magnesium Oxide (Magnesium Oxide) 400 mg PO DAILY [facility] Last Admin: 02/20/17 08:26 Dose: 400 mg Midazolam HCl (Versed 1 Mg/Ml) Confirm Administered Dose 2 mg .ROUTE .STK-MED ONE Stop: 02/17/17 09:10 Morphine Sulfate (Morphine) 2 mg IVPUSH Q2H PRN PRN Reason: Breakthrough Pain Last Admin: 02/20/17 00:46 Dose: 2 mg Morphine Sulfate (Duramorph Pf) Confirm Administered Dose 10 mg .ROUTE .STK-MED ONE Stop: 02/17/17 09:18 Multivitamins (Thera) 1 each PO WITHBREAKFAST [facility] Last Admin: 02/20/17 06:08 Dose: 1 each Naloxone HCl (Narcan) 0.1 mg IVPUSH Q5M PRN PRN Reason: Oversedation Stop: 02/17/17 12:16 Ondansetron HCl (Zofran) 4 mg IVPUSH Q6H PRN PRN Reason: Nausea/Vomiting Ondansetron HCl (Zofran) 4 mg IVPUSH ONETIME PRN PRN Reason: Nausea/Vomiting Stop: 02/17/17 18:00 Oxycodone HCl (Oxycodone) 5 mg PO Q6H PRN PRN Reason: Pain (moderate 4-6) Last Admin: 02/20/17 00:46 Dose: 5 mg Oxycodone/Acetaminophen (Percocet 325-5 Mg) 1 - 2 tab PO Q4H PRN PRN Reason: Pain Last Admin: 02/20/17 06:08 Dose: 2 tab Pantoprazole Sodium (Protonix) 40 mg PO DAILY@0700 [facility] Last Admin: 02/20/17 06:08 Dose: 40 mg Pneumococcal 13-Valent Conj Vacc (Prevnar 13) 0.5 ml IM .ONCE ONE Stop: 02/17/17 09:53 Last Admin: 02/20/17 10:02 Dose: 0.5 ml Pneumococcal Polyvalent Vaccine (Pneumovax 23) 0.5 ml IM .ONCE ONE Stop: 02/17/17 16:13 Last Admin: 02/18/17 20:12 Dose: Not Given Propofol (Diprivan 20 Ml) Confirm Administered Dose 200 mg .ROUTE .STK-MED ONE Stop: 02/17/17 09:09 Propofol (Diprivan 20 Ml) Confirm Administered Dose 200 mg .ROUTE .STK-MED ONE Stop: 02/17/17 12:50 Rosuvastatin Calcium (Crestor) 10 mg PO DAILY [facility] Last Admin: 02/20/17 08:24 Dose: 10 mg Senna (Senna) 8.6 mg PO BID PRN PRN Reason: Constipation Last Admin: 02/19/17 09:58 Dose: 8.6 mg Sodium Chloride (Saline Flush) 10 ml FLUSH ASDIRECTED PRN PRN Reason: Keep Vein Open Stop: 02/17/17 18:00 Sucralfate (Carafate) 2 gm PO BEDTIME [facility] Last Admin: 02/19/17 20:02 Dose: 2 gm Tranexamic Acid (Cyklokapron) Confirm Administered Dose 1,000 mg .ROUTE .STK- MED ONE Stop: 02/17/17 09:47 Last Admin: 02/17/17 13:14 Dose: 1,000 mg Vit A/Vit C/Vit E/Selen/Cu/Zn/Lutei (Icaps Mv) 1 tab PO DAILY [facility] Last Admin: 02/20/17 08:24 Dose: 1 tab - Exam Wound/Incisions: dressing dry and intact General: alert, cooperative, no acute distress Lungs: Normal respiratory effort Extremities: normal pulses, no calf tenderness, other (NVS intact for BLE. Christiano's negative. ) - Problem List Review Problem List Initiated/Reviewed/Updated: Yes - My Orders Last 24 Hours: Active Orders 24 hr Category Date Time Status Ready for Discharge [RC] PER UNIT ROUTINE Care 02/20/17 07:09 Active - Assessment Assessment (Free Text/Narrative):: POD#3 - left TKA - Plan Plan (Free Text/Narrative):: 1. Discharge to [facility] today for continued therapy. 2. 325mg ASA BID, frequent mobility, TEDs. 3. F/U at outpatient Clinic next week. 4. Further orders per Hospitalist service. The pt's case was discussed with Dr. Brothers.
--- NOTE | 2017-02-20 15:51 | PCM.DCSUM1 ---
Discharge Summary - Hospital Course Brief History: Janet is a 77 yo female who underwent left TKA with Dr. Brothers on 02-17-2017. The procedure was completed under spinal anesthesia with MAC. The pt tolerated the procedure well and was admitted to the Medical-Surgical Unit. The pt received Ancef myah-operatively. She participated in P.T. and O.T. and progressed well. She was allowed to WBAT and used a FWW for mobility. A Mepilex dressing was placed at the surgical site and remained clean and dry. On POD#1, the pt was started on 325mg ASA BID for VTE prophylaxis. The pt used TEDs and SCDs also. On POD#1, the pt's hemoglobin was 10.7. Medial management was provided by the Hospitalist service and the pt's hospital course was uneventful. Her blood sugars were closely monitored. On POD#3, the pt was deemed appropriate for [facility] for [facility]. - Discharge Data Discharge Date: 02/20/17 Discharge Disposition: DC/Tfer to SNF 03 Condition: Good - Patient Summary/Data Operative Procedure(s) Performed: left total knee arthroplasty Consults: Consultations 02/17/17 07:10 Consult to Physician [CONS] Routine OT Evaluation and Treatment [CONS] Routine 02/17/17 07:14 PT Evaluation and Treatment [CONS] Routine - Patient Instructions Diet: Usual Diet as Tolerated Activity: Apply Ice, As Tolerated, Elevate Extremity, Full Weight Bearing Driving: Do Not Drive Showering/Bathing: May Shower Wound/Incision Care: Keep Operative Site/Wound Site Clean and Dry, Do NOT Change Dressing Notify Provider of: Fever, Increased Pain, Swelling and Redness, Drainage, Nausea and/or Vomiting Other/Special Instructions: Please get up and moving around every hour while awake. This helps to prevent blood clots. Please take 325mg aspirin TWICE daily - this also helps to prevent blood clots. The medication is being used for blood clot prevention and not for pain control, so please use the medication twice daily as directed. Please wear the ELSIE hose during the day and remove them at night. Please schedule for P.T. Complete the P.T. exercises and stretches that were instructed in the Hospital. Please use the pain medication as needed. The medication may cause drowsiness and/or constipation. You could use a stool softener like docusate sodium or Colace 100mg twice daily and/or a laxative like Miralax daily for constipation. Contact your primary care provider for further instructions if you are constipated. Try to wean from use of the pain medication as soon as able. Please schedule an appointment with your primary care provider for 'routine post -op care'. Your blood sugars will need VERY close monitoring and please contact your primary care provider if the blood sugar values are abnormal. Use the incentive spirometer often. Please place ice to the knee often. Please elevate the limb to decrease swelling. Keep the Mepilex dressing in place until follow-up. Please call [phone] with questions or concerns. - Discharge Plan Prescriptions/Med Rec: Cyclobenzaprine [Flexeril] 5 mg PO Q8HR PRN #40 tablet PRN Reason: muscle spasms Acetaminophen/oxyCODONE [Percocet 325-5 MG] 1 - 2 tab PO Q4H PRN #60 tablet PRN Reason: Pain Aspirin [Ecotrin] 325 mg PO BID #84 tab.ec Carvedilol [Coreg] 25 mg PO BID #60 tablet Docusate Sodium [Colace] 100 mg PO BID #60 cap Losartan [Cozaar] 50 mg PO BID #60 tablet Magnesium Oxide 400 mg PO DAILY #30 tablet Home Medications: Home Meds Allopurinol [Zyloprim] 100 mg PO DAILY 07/06/14 [History] Calcium Carb & Citrate/Vit D3 [Calcium + D3 ER Tablet] 1 tab PO DAILY 07/06/14 [ History] Furosemide 20 mg PO DAILY 07/06/14 [History] Gabapentin 200 mg PO DAILY 07/06/14 [History] Insulin Glarg,Human.Rec.Analog [Lantus Solostar] 31 units SQ BEDTIME 07/06/14 [ History] Lutein/Minerals/Vit A,C & E [Ocuvite] 1 tab PO DAILY 07/06/14 [History] Omeprazole 40 mg PO DAILY 07/06/14 [History] Sucralfate [Carafate] 2 gm PO BEDTIME 07/06/14 [History] Cholecalciferol (Vitamin D3) [Vitamin D3] 1,000 unit PO DAILY 02/14/17 [History] Insulin Aspart [NovoLOG] 1 dose SQ TID 02/14/17 [History] Levothyroxine 25 mcg PO DAILY 02/14/17 [History] Rosuvastatin [Crestor] 10 mg PO DAILY 02/14/17 [History] metFORMIN HCl [Metformin HCl] 250 mg PO BID 02/14/17 [History] Acetaminophen/oxyCODONE [Percocet 325-5 MG] 1 - 2 tab PO Q4H PRN #60 tablet 03/31 [Rx] Aspirin [Ecotrin] 325 mg PO BID #84 tab.ec 02/19/17 [Rx] Carvedilol [Coreg] 25 mg PO BID #60 tablet 02/19/17 [Rx] Cyclobenzaprine [Flexeril] 5 mg PO Q8HR PRN #40 tablet 02/19/17 [Rx] Docusate Sodium [Colace] 100 mg PO BID #60 cap 02/19/17 [Rx] Losartan [Cozaar] 50 mg PO BID #60 tablet 02/19/17 [Rx] Magnesium Hydroxide [Milk of Magnesia] 30 ml PO BID PRN #0 cup 02/19/17 [Rx] Magnesium Oxide 400 mg PO DAILY #30 tablet 02/19/17 [Rx] Patient Handouts: Total Knee Replacement, Care After, [id number], Total Knee Replacement, [id number], Knee Rehabilitation Guidelines Following Surgery, Managing Your High Blood Pressure, Atrial Fibrillation, [id number], Hypertension Referrals: Gracie Ortiz PA-C [Physician Strategic Advisor] - 02/25/17 11:30 am (has 2nd follow up appointment for 03/05 12:45 with Liberty Ortiz at Deneen Reyes's office at [facility]) Ankit Willams MD [Primary Care Provider] - - Patient Data Vitals - Most Recent: Last Vital Signs Temp 97.7 F 02/20/17 07:38 Pulse 83 02/20/17 08:22 Resp 16 02/20/17 07:38 BP 142/72 H 02/20/17 08:23 Pulse Ox 93 L 02/20/17 07:38 Weight - Most Recent: 236 lb I&O - Last 24 hours: Intake & Output 02/20/17 02/20/17 02/20/17 06:59 14:59 22:59 Intake Total 400 960 Output Total 650 300 Balance -250 660 Lab Results - Last 24 hrs: Laboratory Results - last 24 hr 02/19/17 02/19/17 02/19/17 Range/Units 12:01 17:35 21:27 WBC (3.98-10.04) K/mm3 RBC (3.98-5.22) M/mm3 Hgb (11.2-15.7) gm/L Hct (34.1-44.9) % MCV (79.4-94.8) fl MCH (25.6-32.2) pg MCHC (32.2-35.5) g/dl RDW Std Deviation (36.4-46.3) fL Plt Count (182-369) K/mm3 MPV (9.4-12.3) fl Neut % (Auto) (34.0-71.1) % Lymph % (Auto) (19.3-51.7) % [place] % (Auto) (4.7-12.5) % Eos % (Auto) (0.7-5.8) Baso % (Auto) (0.1-1.2) % Neut # (Auto) (1.56-6.13) K/mm3 Lymph # (Auto) (1.18-3.74) K/mm3 [place] # (Auto) (0.24-0.36) K/mm3 Eos # (Auto) (0.04-0.36) K/mm3 Baso # (Auto) (0.01-0.08) K/mm3 Sodium (136-145) mEq/L Potassium (3.5-5.1) mEq/L Chloride (98-107) mEq/L Carbon Dioxide (21-32) mEq/L Anion Gap (5-15) BUN (7-18) mg/dL Creatinine (0.55-1.02) mg/dL Est Cr Clr Drug Dosing mL/min Estimated GFR (MDRD) (>60) mL/min BUN/Creatinine Ratio (14-18) Glucose (83-115) mg/dL POC Glucose 273 H 245 H 221 H (83-110) mg/dL Calcium (8.5-10.1) mg/dL Magnesium (1.8-2.4) mg/dl 02/20/17 02/20/17 02/20/17 Range/Units 05:29 05:29 06:10 WBC 8.07 (3.98-10.04) K/mm3 RBC 3.59 L (3.98-5.22) M/mm3 Hgb 9.8 L (11.2-15.7) gm/L Hct 31.8 L (34.1-44.9) % MCV 88.6 (79.4-94.8) fl MCH 27.3 (25.6-32.2) pg MCHC 30.8 L (32.2-35.5) g/dl RDW Std Deviation 47.7 H (36.4-46.3) fL Plt Count 253 (182-369) K/mm3 MPV 9.6 (9.4-12.3) fl Neut % (Auto) 67.6 (34.0-71.1) % Lymph % (Auto) 18.8 L (19.3-51.7) % [place] % (Auto) 10.9 (4.7-12.5) % Eos % (Auto) 2.1 (0.7-5.8) Baso % (Auto) 0.4 (0.1-1.2) % Neut # (Auto) 5.45 (1.56-6.13) K/mm3 Lymph # (Auto) 1.52 (1.18-3.74) K/mm3 [place] # (Auto) 0.88 H (0.24-0.36) K/mm3 Eos # (Auto) 0.17 (0.04-0.36) K/mm3 Baso # (Auto) 0.03 (0.01-0.08) K/mm3 Sodium 136 (136-145) mEq/L Potassium 3.7 (3.5-5.1) mEq/L Chloride 101 (98-107) mEq/L Carbon Dioxide 22 (21-32) mEq/L Anion Gap 16.7 H (5-15) BUN 22 H (7-18) mg/dL Creatinine 1.1 H (0.55-1.02) mg/dL Est Cr Clr Drug Dosing 31.81 mL/min Estimated GFR (MDRD) 48 (>60) mL/min BUN/Creatinine Ratio 20.0 H (14-18) Glucose 170 H (83-115) mg/dL POC Glucose 155 H (83-110) mg/dL Calcium 8.7 (8.5-10.1) mg/dL Magnesium 1.9 (1.8-2.4) mg/dl Med Orders - Current: Current Medications Discontinued Medications Allopurinol (Zyloprim) 100 mg PO DAILY COUNTS INCLUDE 234 BEDS AT THE [facility] Last Admin: 02/20/17 08:27 Dose: 100 mg Aspirin (Ecotrin) 325 mg PO BID COUNTS INCLUDE 234 BEDS AT THE [facility] Last Admin: 02/20/17 08:24 Dose: 325 mg Bisacodyl (Dulcolax) 5 mg PO DAILY PRN PRN Reason: Constipation Last Admin: 02/19/17 09:58 Dose: 5 mg Bisacodyl (Dulcolax) 10 mg RECTAL DAILY PRN PRN Reason: Constipation Last Admin: 02/19/17 20:03 Dose: 10 mg Bupivacaine HCl (Marcaine 0.25%) Confirm Administered Dose 30 ml .ROUTE .STK- MED ONE Stop: 02/17/17 09:48 Last Admin: 02/17/17 13:05 Dose: 30 ml Calcium Carbonate (Calcium Carbonate/Vitamin D 1500 Mg-200 Unit) 1 tab PO DAILY COUNTS INCLUDE 234 BEDS AT THE [facility] Last Admin: 02/20/17 08:21 Dose: 1 tab Carvedilol (Coreg) 12.5 mg PO BID COUNTS INCLUDE 234 BEDS AT THE [facility] Last Admin: 02/19/17 08:08 Dose: 12.5 mg Carvedilol (Coreg) 25 mg PO BID COUNTS INCLUDE 234 BEDS AT THE [facility] Last Admin: 02/20/17 08:22 Dose: 25 mg Cefazolin Sodium (Ancef) Confirm Administered Dose 2 gm .ROUTE .STK-MED ONE Stop: 02/17/17 09:06 Last Admin: 02/17/17 13:02 Dose: 2 gm Cefazolin Sodium (Ancef) Confirm Administered Dose 2 gm .ROUTE .STK-MED ONE Stop: 02/17/17 09:48 Cholecalciferol (Vitamin D3) 1,000 units PO DAILY COUNTS INCLUDE 234 BEDS AT THE [facility] Last Admin: 02/20/17 08:27 Dose: 1,000 units Morphine Sulfate 8 mg/Epinephrine HCl 0.3 mg/Cefuroxime Sodium 750 mg/Ketorolac Tromethamine 30 mg/Sodium Chloride 27.9 ml 0 mg .XX ONETIME ONE Stop: 02/17/17 10:46 Last Admin: 02/17/17 13:04 Dose: 788.3 mg Cyclobenzaprine HCl (Flexeril) 5 mg PO Q8HR PRN PRN Reason: Spasms Last Admin: 02/20/17 08:35 Dose: 5 mg Diphenhydramine HCl (Benadryl) 25 mg IVPUSH Q6H PRN PRN Reason: pruritis Stop: 02/17/17 18:00 Diphtheria/Tetanus/Acell Pertussis (Boostrix) 0.5 ml IM .ONCE ONE Stop: 02/17/17 09:52 Last Admin: 02/20/17 09:57 Dose: 0.5 ml Docusate Sodium (Colace) 100 mg PO BID COUNTS INCLUDE 234 BEDS AT THE [facility] Last Admin: 02/20/17 08:22 Dose: 100 mg Enoxaparin Sodium (Lovenox) 40 mg SUBCUT DAILY COUNTS INCLUDE 234 BEDS AT THE [facility] Ephedrine Sulfate (Ephedrine In Ns) Confirm Administered Dose 25 mg .ROUTE .STK- MED ONE Stop: 02/17/17 12:17 Ephedrine Sulfate (Ephedrine In Ns) Confirm Administered Dose 25 mg .ROUTE .STK- MED ONE Stop: 02/17/17 13:32 Famotidine (Pepcid) 20 mg PO BID COUNTS INCLUDE 234 BEDS AT THE [facility] Last Admin: 02/17/17 21:09 Dose: 20 mg Fentanyl (Sublimaze) 50 mcg IVPUSH Q5M PRN PRN Reason: Pain Stop: 02/17/17 18:00 Furosemide (Lasix) 20 mg PO DAILY COUNTS INCLUDE 234 BEDS AT THE [facility] Last Admin: 02/20/17 08:24 Dose: 20 mg Gabapentin (Neurontin) 200 mg PO DAILY COUNTS INCLUDE 234 BEDS AT THE [facility] Last Admin: 02/20/17 08:26 Dose: 200 mg Hydralazine HCl (Apresoline) 10 mg PO Q4H PRN PRN Reason: Hypertension Lactated Ringer's (Ringers, Lactated) 1,000 mls @ 125 mls/hr IV ASDIRECTED COUNTS INCLUDE 234 BEDS AT THE [facility] Stop: 02/17/17 23:00 Last Admin: 02/17/17 09:10 Dose: 125 mls/hr Sodium Chloride (Normal Saline) Confirm Administered Dose 1,000 mls @ as directed .ROUTE .STK-MED ONE Stop: 02/17/17 11:51 Lidocaine HCl (Xylocaine-Mpf 1%) Confirm Administered Dose 4 mls @ as directed .ROUTE .STK-MED ONE Stop: 02/17/17 12:05 Cefazolin Sodium/Dextrose 2 gm (/ Premix) 50 mls @ 100 mls/hr IV Q8H COUNTS INCLUDE 234 BEDS AT THE [facility] Stop: 02/18/17 12:59 Last Admin: 02/18/17 12:54 Dose: 100 mls/hr Magnesium Sulfate 2 gm/ Premix 50 mls @ 25 mls/hr IV ONETIME ONE Stop: 02/19/17 15:16 Last Admin: 02/19/17 14:08 Dose: 25 mls/hr Insulin Aspart (Novolog) 0 unit SUBCUT TIDMEALS COUNTS INCLUDE 234 BEDS AT THE [facility] PRN Reason: Protocol Last Admin: 02/19/17 12:03 Dose: 3 units Insulin Aspart (Novolog) 0 unit SUBCUT QIDACANDBED COUNTS INCLUDE 234 BEDS AT THE [facility] PRN Reason: Protocol Last Admin: 02/20/17 06:14 Dose: 3 units Insulin Detemir (Levemir) 16 unit SUBCUT DAILY COUNTS INCLUDE 234 BEDS AT THE [facility] Last Admin: 02/20/17 08:25 Dose: 16 units Insulin Detemir (Levemir) 15 unit SUBCUT BEDTIME COUNTS INCLUDE 234 BEDS AT THE [facility] Last Admin: 02/19/17 20:04 Dose: 15 units Iodine (Iodine 2% Mild Tincture) Confirm Administered Dose 30 ml .ROUTE .STK- MED ONE Stop: 02/17/17 09:48 Last Admin: 02/17/17 13:00 Dose: 18 ml Levothyroxine Sodium (Levothyroxine) 25 mcg PO ACBREAKFAST COUNTS INCLUDE 234 BEDS AT THE [facility] Last Admin: 02/20/17 06:12 Dose: 25 mcg Lidocaine/Sodium Bicarbonate (Buffered Lidocaine 1% In Ns 8.4%) 0.25 ml .XX ONETIME PRN PRN Reason: Prior to IV Start Stop: 02/17/17 18:00 Last Admin: 02/17/17 09:09 Dose: 0.25 ml Losartan Potassium (Cozaar) 50 mg PO DAILY COUNTS INCLUDE 234 BEDS AT THE [facility] Last Admin: 02/18/17 09:18 Dose: 50 mg Losartan Potassium (Cozaar) 50 mg PO BID COUNTS INCLUDE 234 BEDS AT THE [facility] Last Admin: 02/20/17 08:23 Dose: 50 mg Magnesium Hydroxide (Milk Of Magnesia) 30 ml PO BID PRN PRN Reason: Constipation Magnesium Oxide (Magnesium Oxide) 400 mg PO DAILY COUNTS INCLUDE 234 BEDS AT THE [facility] Last Admin: 02/20/17 08:26 Dose: 400 mg Midazolam HCl (Versed 1 Mg/Ml) Confirm Administered Dose 2 mg .ROUTE .STK-MED ONE Stop: 02/17/17 09:10 Morphine Sulfate (Morphine) 2 mg IVPUSH Q2H PRN PRN Reason: Breakthrough Pain Last Admin: 02/20/17 00:46 Dose: 2 mg Morphine Sulfate (Duramorph Pf) Confirm Administered Dose 10 mg .ROUTE .STK-MED ONE Stop: 02/17/17 09:18 Multivitamins (Thera) 1 each PO WITHBREAKFAST COUNTS INCLUDE 234 BEDS AT THE [facility] Last Admin: 02/20/17 06:08 Dose: 1 each Naloxone HCl (Narcan) 0.1 mg IVPUSH Q5M PRN PRN Reason: Oversedation Stop: 02/17/17 12:16 Ondansetron HCl (Zofran) 4 mg IVPUSH Q6H PRN PRN Reason: Nausea/Vomiting Ondansetron HCl (Zofran) 4 mg IVPUSH ONETIME PRN PRN Reason: Nausea/Vomiting Stop: 02/17/17 18:00 Oxycodone HCl (Oxycodone) 5 mg PO Q6H PRN PRN Reason: Pain (moderate 4-6) Last Admin: 02/20/17 00:46 Dose: 5 mg Oxycodone/Acetaminophen (Percocet 325-5 Mg) 1 - 2 tab PO Q4H PRN PRN Reason: Pain Last Admin: 02/20/17 06:08 Dose: 2 tab Pantoprazole Sodium (Protonix) 40 mg PO DAILY@0700 COUNTS INCLUDE 234 BEDS AT THE [facility] Last Admin: 02/20/17 06:08 Dose: 40 mg Pneumococcal 13-Valent Conj Vacc (Prevnar 13) 0.5 ml IM .ONCE ONE Stop: 02/17/17 09:53 Last Admin: 02/20/17 10:02 Dose: 0.5 ml Pneumococcal Polyvalent Vaccine (Pneumovax 23) 0.5 ml IM .ONCE ONE Stop: 02/17/17 16:13 Last Admin: 02/18/17 20:12 Dose: Not Given Propofol (Diprivan 20 Ml) Confirm Administered Dose 200 mg .ROUTE .STK-MED ONE Stop: 02/17/17 09:09 Propofol (Diprivan 20 Ml) Confirm Administered Dose 200 mg .ROUTE .STK-MED ONE Stop: 02/17/17 12:50 Rosuvastatin Calcium (Crestor) 10 mg PO DAILY COUNTS INCLUDE 234 BEDS AT THE [facility] Last Admin: 02/20/17 08:24 Dose: 10 mg Senna (Senna) 8.6 mg PO BID PRN PRN Reason: Constipation Last Admin: 02/19/17 09:58 Dose: 8.6 mg Sodium Chloride (Saline Flush) 10 ml FLUSH ASDIRECTED PRN PRN Reason: Keep Vein Open Stop: 02/17/17 18:00 Sucralfate (Carafate) 2 gm PO BEDTIME COUNTS INCLUDE 234 BEDS AT THE [facility] Last Admin: 02/19/17 20:02 Dose: 2 gm Tranexamic Acid (Cyklokapron) Confirm Administered Dose 1,000 mg .ROUTE .STK- MED ONE Stop: 02/17/17 09:47 Last Admin: 02/17/17 13:14 Dose: 1,000 mg Vit A/Vit C/Vit E/Selen/Cu/Zn/Lutei (Icaps Mv) 1 tab PO DAILY COUNTS INCLUDE 234 BEDS AT THE [facility] Last Admin: 02/20/17 08:24 Dose: 1 tab *Q Meaningful Use (DIS) - VTE *Q VTE Criteria *Q: - Stroke *Q Stroke Criteria *Q: - AMI *Q AMI Criteria *Q:
--- NOTE | 2017-02-24 22:37 | OR ---
DATE OF OPERATION: 02/17/2017 SURGEON: Parveen Brothers MD OPERATION PERFORMED: Left total knee arthroplasty. PREOPERATIVE DIAGNOSIS: Left knee osteoarthrosis. POSTOPERATIVE DIAGNOSIS: Left knee osteoarthrosis. ANESTHESIA: Local MAC with spinal. ANESTHESIA PROVIDER: Bk Ceja CRNA. ASSISTANTS: Gracie Ortiz PA-C and Kayla Walter LPN. ESTIMATED BLOOD LOSS: 100 mL COMPLICATIONS: None. CONDITION: Stable. IMPLANTS: 1. [place] size 4 PS femur. 2. [place] size 3 universal tibial base plate. 3. Gee size 3 9-mm PS X3 polyethylene. 4. Gee 29 x 9 mm asymmetric patella. DESCRIPTION OF PROCEDURE: The patient was identified in the preop holding area. Proper site was marked and identified by the surgeon. The patient was taken back to the operating theater. After adequate anesthesia, the patient's left lower extremity had a nonsterile tourniquet applied and it was then sterilely prepped and draped in the usual sterile fashion. OR timeout was performed. The patient received 2 g IV Ancef. At this time, left lower extremity was exsanguinated. Tourniquet was insufflated to 300 mmHg. Standard medial parapatellar incision was made. Medial parapatellar arthrotomy was created. Deep fibers of the MCL were raised and anterior fat pad was resected. At this time, attention was turned to the patella. Patella measured 22, it was resected to a 13 for 29 x 9 mm patella. Drill holes were then drilled and found to be in adequate position. The drill was then drilled in the distal femur and the intramedullary distal femoral cutting guide was then placed. 8 mm was resected off the distal femur and was found to be an adequate resection. Sizing guide was placed. It was found to be a size 4 PS femur that was shown on the implant record at the beginning of this dictation. The drill holes were drilled for the epicondylar axis using [place] line and epicondyles as reference. At this time, the 4-in-1 cutting block was placed. An anterior posterior and anterior and posterior chamfer cuts were then completed. The correct size box cut was then placed and the box cut was completed and found to be an adequate resection. Attention was turned to the tibia. The posterior medial lateral retractors were placed. The extramedullary tibial guide was placed. It was placed in the old footprint of the ACL. It was aligned with the center of the ankle and 0 degrees of slope, 9 mm was then resected off the unaffected lateral side. There was found to be an acceptable reduction. At this time, posterior osteophytes were removed along with medial and lateral meniscus. A trial implant was placed with a correct sized tibia that was mentioned at the beginning of the dictation. A 9-mm trial spacer was placed and 9-mm X3 PS polyethylene was then placed. The patient's knee was brought through range of motion. The patella was tracking centrally and was stable to varus and valgus stress. Alignment was found to be roughly at 0 degrees. At this time, cement was mixed on the back table. The tibia was stamped and drilled in proper rotation. All cut surfaces were irrigated with pulse lavage irrigation with Ancef and then completely dried. Once this was completed, then the cement was ready. The universal tibial base plate was cemented in place. Next, the 4 PS femur cemented into place and the 9-mm X3 PS polyethylene was placed. The patient's knee was brought into full extension. Excess cement was removed. The patella was then cemented in place at this time. Tourniquet was deflated. One liter dilute Betadine solution was irrigated through the knee along with 3 L of pulse lavage irrigation with Ancef. Periarticular injection was then completed. The patient's knee was brought through a range of motion. Once the cement had time to set up and it was found to be stable to varus valgus stress, the patella was tracking centrally with full range of motion. At this time, a #2 barbed suture was used for closure of the medial parapatellar arthrotomy. Topical tranexamic acid was placed. 2-0 Vicryl was used subcutaneously, a running 3-0 Monocryl was used subcuticularly. The patient tolerated the procedure well and was sent to the PACU in stable condition. MICA /[id number]
== END 2017-02-20 10:10 | DRG 470 ==
LOC: JD.MS 08:36
PROVIDERS: ADMIT Orthopaedic Surgery; ATTEND Orthopaedic Surgery
PROC: 0SRD0J9 Replacement of Left Knee Joint with Synthetic Substitute, Cemented, Open Approach (ICD-10-PCS; principal; 2017-02-17)
PROC: 3E0234Z Introduction of Serum, Toxoid and Vaccine into Muscle, Percutaneous Approach (ICD-10-PCS; 2017-02-17)
DX: M17.12 Unilateral primary osteoarthritis, left knee (principal); E11.9 Type 2 diabetes mellitus without complications; I48.91 Unspecified atrial fibrillation; I10 Essential (primary) hypertension; G47.33 Obstructive sleep apnea (adult) (pediatric); K21.9 Gastro-esophageal reflux disease without esophagitis; I73.9 Peripheral vascular disease, unspecified; E78.5 Hyperlipidemia, unspecified; E21.3 Hyperparathyroidism, unspecified; E66.01 Morbid (severe) obesity due to excess calories; Z68.39 Body mass index [BMI] 39.0-39.9, adult; Z79.4 Long term (current) use of insulin; Z96.659 Presence of unspecified artificial knee joint; Z88.8 Allergy status to other drugs, medicaments and biological substances; Z23 Encounter for immunization
CPT/HCPCS: 01402; 36415; 73560-26-LT; 73560-LT; 80048; 80053; 82962; 83735; 85025; 90471; 90670; 90715; 94762; 97110-GP; 97116-GP; 97161-GP; 97166-GO; 97535-GO; A9270-GY; C1713; C1776; G0009; J0171; J0690; J0697; J1815-GY; J1885; J2250; J2270; J2704; J3475; J3490; J7040; J7050; J7120

== ENCOUNTER 2017-04-17 07:02 | Day surgery (SDC) | payer MEDICARE, BC ==
[~2017-04-17 07:02] MED LIST changes: -Acetaminophen/oxyCODONE 325-5 MG Tab PO PRN; +Ketamine 500 mg/10 ML MDV ONE; +Midazolam 1 MG/ML 2 ML SDV ONE; +Propofol 200 MG/20 ML SDV ONE
[2017-04-17] MEDS ORDERED: Propofol 200 MG/20 ML SDV ONE (07:16)
[2017-04-17] MEDS ORDERED: Lidocaine 1% 4 ML ONE (07:16)
[2017-04-17] MEDS ORDERED: fentaNYL 100 MCG/2 ML SDV ONE (07:16)
--- NOTE | 2017-04-17 07:50 | PCM.PREANE ---
Preanesthetic Assessment - Anesthesia/Transfusion/Family Hx Anesthesia History: Prior Anesthesia Without Reaction Family History of Anesthesia Reaction: No Transfusion History: No Prior Transfusion(s) - Review of Systems General: No Symptoms Pulmonary: No Symptoms Cardiovascular: No Symptoms Gastrointestinal: No Symptoms, Abdominal Pain (always) Neurological: No Symptoms Other: Reports: Diabetes - Physical Assessment NPO Status Date: 04/16/17 NPO Status Time: 22:00 Pulse: 64 O2 Sat by Pulse Oximetry: 96 Respiratory Rate: 16 Blood Pressure: 141/49 Temperature: 98.2 F Height: 5 ft 1 in Weight: 107.048 kg ASA Class: 3 Mental Status: Alert & Oriented x3 Airway Class: Mallampati = 1 Dentition: Reports: Dentures (top and bottom) Thyro-Mental Finger Breadths: 3 Mouth Opening Finger Breadths: 3 ROM/Head Extension: Full Lungs: Clear to Auscultation, Normal Respiratory Effort Cardiovascular: Regular Rate, Regular Rhythm - Allergies Allergies/Adverse Reactions: Allergies Allergy/AdvReac Type Severity Reaction Status Date / Time amoxicillin trihydrate AdvReac Diarrhea Verified 04/16/17 15:23 [From Augmentin] ciprofloxacin [From Cipro] AdvReac Nausea Verified 04/16/17 15:23 ciprofloxacin HCl AdvReac Nausea Verified 04/16/17 15:23 [From Cipro] iodixanol AdvReac Decreased Verified 04/16/17 15:23 Urine Output meclizine HCl [From Antivert] AdvReac Confusion Verified 04/16/17 15:23 potassium clavulanate AdvReac Diarrhea Verified 04/16/17 15:23 [From Augmentin] Sulfa (Sulfonamide AdvReac Stomach Verified 04/16/17 15:23 Antibiotics) Upset sulfamethoxazole AdvReac Nausea Verified 04/16/17 15:23 [From Bactrim] trimethoprim [From Bactrim] AdvReac Nausea Verified 04/16/17 15:23 - Blood Blood Available: No - Anesthesia Plan Pre-Op Medication Ordered: Beta Simón Beta Simón: Carvedilol Med Last Dose Date: 04/17/17 Med Last Dose Time: 06:00 - Acknowledgements Anesthesia Type Planned: General Anesthesia Pt an Appropriate Candidate for the Planned Anesthesia: Yes Alternatives and Risks of Anesthesia Discussed w Pt/Guardian: Yes Pt/Guardian Understands and Agrees with Anesthesia Plan: Yes PreAnesthesia Questionnaire HEENT History: Reports: Impaired Vision, Macular Degeneration, Other (See Below) Other HEENT History: glasses, dentures Cardiovascular History: Reports: Afib, Arrhythmia, Cardiomyopathy, High Cholesterol, Hypertension, PVD, Other (See Below) Other Cardiovascular History: PACs Respiratory History: Reports: SOB Gastrointestinal History: Reports: Gastritis, GERD, Irritable Bowel Syndrome Genitourinary History: Reports: Other (See Below) Other Genitourinary History: acute renal failure, was on dialysis temporaily 2013 [employer]END[employer] History: Reports: Musculoskeletal History: Reports: Back Pain, Chronic, Gout, Osteoarthritis Neurological History: Reports: Headaches, Chronic, Vertigo, Other (See Below) Other Neuro History: spinal stenosis with tingling to hands Psychiatric History: Reports: None Endocrine/Metabolic History: Reports: Diabetes, Type II, Hyperparathyroidism, Obesity/BMI 30+ Hematologic History: Reports: Anemia Immunologic History: Reports: None Oncologic (Cancer) History: Reports: None Dermatologic History: Reports: None - Infectious Disease History Infectious Disease History: Reports: C-Difficile, Chicken Pox, Measles, MRSA, Mumps Other Infectious Disease History: hx of, however PCR came back negative. - Past Surgical History Head Surgeries/Procedures: Reports: None HEENT Surgical History: Reports: None Cardiovascular Surgical History: Reports: None Respiratory Surgical History: Reports: None GI Surgical History: Reports: Appendectomy, Colonoscopy Female Surgical History: Reports: None Endocrine Surgical History: Reports: Parathyroidectomy Neurological Surgical History: Reports: Laminectomy Musculoskeletal Surgical History: Reports: Knee Replacement, Other (See Below) Other Musculoskeletal Surgeries/Procedures:: Shoulder surgery, laminectomy Dermatological Surgical History: Reports: None - SUBSTANCE USE Smoking Status *Q: Never Smoker Tobacco Use Within Last Twelve Months: No Second Hand Smoke Exposure: No Days Per Week of Alcohol Use: 0 Number of Drinks Per Day: 0 Total Drinks Per Week: 0 Recreational Drug Use History: No - HOME MEDS Home Medications: Home Meds Allopurinol [Zyloprim] 100 mg PO DAILY 07/06/14 [History] Calcium Carb & Citrate/Vit D3 [Calcium + D3 ER Tablet] 1 tab PO DAILY 07/06/14 [ History] Furosemide 20 mg PO DAILY 07/06/14 [History] Gabapentin 200 mg PO DAILY 07/06/14 [History] Insulin Glarg,Human.Rec.Analog [Lantus Solostar] 31 units SQ BEDTIME 07/06/14 [ History] Lutein/Minerals/Vit A,C & E [Ocuvite] 1 tab PO DAILY 07/06/14 [History] Omeprazole 40 mg PO DAILY 07/06/14 [History] Sucralfate [Carafate] 2 gm PO BEDTIME 07/06/14 [History] Cholecalciferol (Vitamin D3) [Vitamin D3] 1,000 unit PO DAILY 02/14/17 [History] Insulin Aspart [NovoLOG] 1 dose SQ TID 02/14/17 [History] Levothyroxine 25 mcg PO DAILY 02/14/17 [History] Rosuvastatin [Crestor] 10 mg PO DAILY 02/14/17 [History] metFORMIN HCl [Metformin HCl] 250 mg PO BID 02/14/17 [History] Aspirin [Ecotrin] 325 mg PO BID #84 tab.ec 02/19/17 [Rx] Carvedilol [Coreg] 25 mg PO BID #60 tablet 02/19/17 [Rx] Cyclobenzaprine [Flexeril] 5 mg PO Q8HR PRN #40 tablet 02/19/17 [Rx] Losartan [Cozaar] 50 mg PO BID #60 tablet 02/19/17 [Rx] Magnesium Oxide 400 mg PO DAILY #30 tablet 02/19/17 [Rx] tiZANidine HCl [Zanaflex] 4 mg PO BEDTIME PRN 04/16/17 [History] traMADol HCl [Ultram] 100 mg PO BID 04/16/17 [History] - CURRENT (IN HOUSE) MEDS Current Meds: Current Medications Lactated Ringer's (Ringers, Lactated) 1,000 mls @ 125 mls/hr IV ASDIRECTED CATHY Stop: 04/17/17 23:00 Lidocaine/Sodium Bicarbonate (Buffered Lidocaine 1% In Ns 8.4%) 0.25 ml .XX ONETIME PRN PRN Reason: Prior to IV Start Stop: 04/17/17 18:00 Sodium Chloride (Saline Flush) 10 ml FLUSH ASDIRECTED PRN PRN Reason: Keep Vein Open Stop: 04/17/17 18:00 Discontinued Medications Fentanyl (Sublimaze) Confirm Administered Dose 100 mcg .ROUTE .STK-MED ONE Stop: 04/17/17 07:17 Lidocaine HCl (Xylocaine-Mpf 1%) Confirm Administered Dose 4 mls @ as directed .ROUTE .STK-MED ONE Stop: 04/17/17 07:17 Ketamine HCl (Ketalar) Confirm Administered Dose 500 mg .ROUTE .STK-MED ONE Stop: 04/16/17 07:24 Midazolam HCl (Versed 1 Mg/Ml) Confirm Administered Dose 2 mg .ROUTE .STK-MED ONE Stop: 04/16/17 07:24 Propofol (Diprivan 20 Ml) Confirm Administered Dose 200 mg .ROUTE .STK-MED ONE Stop: 04/16/17 07:23 Propofol (Diprivan 20 Ml) Confirm Administered Dose 200 mg .ROUTE .STK-MED ONE Stop: 04/17/17 07:17
[2017-04-17] MEDS ORDERED: Ondansetron 4 MG/2 ML SDV IVPUSH PRN (08:24)
--- NOTE | 2017-04-17 08:25 | PCM48HPAN ---
Post Anesthesia Note - EVALUATION WITHIN 48HRS OF ANESTHETIC Vital Signs in Normal Range: Yes Patient Participated in Evaluation: Yes Respiratory Function Stable: Yes Airway Patent: Yes Cardiovascular Function Stable: Yes Hydration Status Stable: Yes Pain Control Satisfactory: Yes Nausea and Vomiting Control Satisfactory: Yes Mental Status Recovered: Yes
[2017-04-17] MEDS ORDERED: Acetaminophen/HYDROcodone 325-5 MG Tab PO ONE (08:30)
--- NOTE | 2017-04-17 09:21 | CR ---
Left knee: Four fluoroscopic spot views were obtained of the left knee utilizing C-arm device. Knee prosthesis is seen. Study shows manipulation in flexion of the left knee. Fluoroscopy time given as 7.7 seconds. Impression: 1. Fluoroscopy study as described above. Diagnostic code #1
[2017-04-17] MEDS ORDERED: Acetaminophen/HYDROcodone 325-5 MG Tab PO SCH (09:30)
[2017-04-17 10:08] VITALS: BP 158/67
--- NOTE | 2017-04-22 07:12 | PCM.OPNOTE ---
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
--- NOTE | 2017-04-22 07:58 | OR ---
DATE OF OPERATION: 04/17/2017 SURGEON: Parveen Brothers MD OPERATION PERFORMED: Left total knee arthroplasty manipulation. PREOPERATIVE DIAGNOSIS: Left total knee arthrofibrosis. POSTOPERATIVE DIAGNOSIS: Left total knee arthrofibrosis. ANESTHESIA: MAC. ANESTHESIA PROVIDER: Bk Ceja CRNA MAGICIAN HELPER: Gracie Ortiz PA-C ESTIMATED BLOOD LOSS: Not applicable. COMPLICATIONS: None. CONDITION: Stable. DESCRIPTION OF PROCEDURE: The patient was identified in the preop holding area. Proper site was marked and identified by the surgeon. The patient was taken back to the operating theater, where after adequate anesthesia, C-arm fluoroscopy was brought in to make sure the implants were in proper alignment. They were noted to be in proper alignment. Pictures were then taken of the patient's pre-manipulation motion, which was roughly 1 to 2 degrees lacking of extension to only roughly 45 degrees of flexion. At this time, the patient's knee was manipulated and it was very easily brought from full extension to 122 degrees of flexion with little to no effort. There was almost no resistance to get this amount of flexion. The knee implant was otherwise stable. Radiographs showed no signs of impingement. At this time, the procedure was ended. The patient was sent to the PACU in a stable condition and will begin physical therapy tomorrow. MICA /[id number]
== END 2017-04-17 09:55 | disposition home or self-care (01) ==
LOC: JD.SDS 07:02
PROVIDERS: ATTEND Orthopaedic Surgery
DX: M24.662 Ankylosis, left knee (principal); I11.9 Hypertensive heart disease without heart failure; I48.91 Unspecified atrial fibrillation; G47.33 Obstructive sleep apnea (adult) (pediatric); E11.9 Type 2 diabetes mellitus without complications; E78.5 Hyperlipidemia, unspecified; K21.9 Gastro-esophageal reflux disease without esophagitis; E78.00 Pure hypercholesterolemia, unspecified; M19.90 Unspecified osteoarthritis, unspecified site; M10.9 Gout, unspecified; Z96.652 Presence of left artificial knee joint; Z79.4 Long term (current) use of insulin; Z79.82 Long term (current) use of aspirin; Z79.899 Other long term (current) drug therapy
CPT/HCPCS: 27570; 76000; A9270; J3010; J7120; 01380; J2250; J2704

== ENCOUNTER 2017-07-24 07:44 | Emergency (ER) | payer MEDICARE, BC ==
[2017-07-24 07:55] VITALS: BP 165/97
--- NOTE | 2017-07-24 08:21 | EDM.PDOC ---
ED HPI GENERAL MEDICAL PROBLEM - General Chief Complaint: Upper Extremity Injury/Pain Stated Complaint: RIGHT WRIST INJURY Time Seen by Provider: 07/24/17 08:14 Source of Information: Reports: Patient History Limitations: Reports: No Limitations - History of Present Illness INITIAL COMMENTS - FREE TEXT/NARRATIVE: The patient presents with right wrist pain. She was wiping herself yesterday and she heart 2 pops and had severe pain in her right wrist. She has pain and edema yet today. 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 She is right handed. Onset: Sudden Duration: Day(s): (Yesterday) Location: Reports: Upper Extremity, Right (Wrist) Quality: Reports: Sharp Severity: Moderate Improves with: Reports: Immobilization Worsens with: Reports: Movement Context: Reports: Activity (She was wiping herself yesterday) Associated Symptoms: Reports: No Other Symptoms Right Wrist Pain Score (Numeric/FACES): 10 - Related Data Allergies Allergy/AdvReac Type Severity Reaction Status Date / Time amoxicillin trihydrate AdvReac Diarrhea Verified 07/24/17 07:51 [From Augmentin] ciprofloxacin [From Cipro] AdvReac Nausea Verified 07/24/17 07:51 ciprofloxacin HCl AdvReac Nausea Verified 07/24/17 07:51 [From Cipro] iodixanol AdvReac Decreased Verified 07/24/17 07:51 Urine Output meclizine HCl [From Antivert] AdvReac Confusion Verified 07/24/17 07:51 potassium clavulanate AdvReac Diarrhea Verified 07/24/17 07:51 [From Augmentin] Sulfa (Sulfonamide AdvReac Stomach Verified 07/24/17 07:51 Antibiotics) Upset sulfamethoxazole AdvReac Nausea Verified 07/24/17 07:51 [From Bactrim] trimethoprim [From Bactrim] AdvReac Nausea Verified 07/24/17 07:51 Home Meds: Home Meds Allopurinol [Zyloprim] 100 mg PO DAILY 07/06/14 [History] Calcium Carb & Citrate/Vit D3 [Calcium + D3 ER Tablet] 1 tab PO DAILY 07/06/14 [ History] Furosemide 20 mg PO DAILY 07/06/14 [History] Gabapentin 200 mg PO BEDTIME 07/06/14 [History] Insulin Glarg,Human.Rec.Analog [Lantus Solostar] 31 units SQ BEDTIME 07/06/14 [ History] Lutein/Minerals/Vit A,C & E [Ocuvite] 1 tab PO DAILY 07/06/14 [History] Omeprazole 40 mg PO DAILY 07/06/14 [History] Sucralfate [Carafate] 2 gm PO BEDTIME 07/06/14 [History] Cholecalciferol (Vitamin D3) [Vitamin D3] 1,000 unit PO DAILY 02/14/17 [History] Insulin Aspart [NovoLOG] 1 dose SQ TID 02/14/17 [History] Levothyroxine 25 mcg PO DAILY 02/14/17 [History] Rosuvastatin [Crestor] 10 mg PO DAILY 02/14/17 [History] metFORMIN HCl [Metformin HCl] 250 mg PO BID 02/14/17 [History] Carvedilol [Coreg] 25 mg PO BID #60 tablet 02/19/17 [Rx] Losartan [Cozaar] 50 mg PO BID #60 tablet 02/19/17 [Rx] Magnesium Oxide 400 mg PO DAILY #30 tablet 02/19/17 [Rx] tiZANidine HCl [Zanaflex] 4 mg PO BEDTIME PRN 04/16/17 [History] traMADol HCl [Ultram] 100 mg PO BID 04/16/17 [History] Aspirin 81 mg PO DAILY 07/24/17 [History] Cyclobenzaprine [Flexeril] 5 mg PO Q8HR 07/24/17 [History] Past Medical History HEENT History: Reports: Impaired Vision, Macular Degeneration, Other (See Below) Other HEENT History: glasses, dentures Cardiovascular History: Reports: Afib, Arrhythmia, Cardiomyopathy, High Cholesterol, Hypertension, PVD, Other (See Below) Other Cardiovascular History: PACs Respiratory History: Reports: SOB Gastrointestinal History: Reports: Gastritis, GERD, Irritable Bowel Syndrome Genitourinary History: Reports: Other (See Below) Other Genitourinary History: acute renal failure, was on dialysis temporaily 2013 [employer]GER [employer] History: Reports: Musculoskeletal History: Reports: Back Pain, Chronic, Gout, Osteoarthritis Neurological History: Reports: Headaches, Chronic, Vertigo, Other (See Below) Other Neuro History: spinal stenosis with tingling to hands Psychiatric History: Reports: None Endocrine/Metabolic History: Reports: Diabetes, Type II, Hyperparathyroidism, Obesity/BMI 30+ Hematologic History: Reports: Anemia Immunologic History: Reports: None Oncologic (Cancer) History: Reports: None Dermatologic History: Reports: None - Infectious Disease History Infectious Disease History: Reports: C-Difficile, Chicken Pox, Measles, MRSA, Mumps Other Infectious Disease History: hx of, however PCR came back negative. - Past Surgical History Head Surgeries/Procedures: Reports: None HEENT Surgical History: Reports: None Cardiovascular Surgical History: Reports: None Respiratory Surgical History: Reports: None GI Surgical History: Reports: Appendectomy, Colonoscopy Female Surgical History: Reports: None Endocrine Surgical History: Reports: Parathyroidectomy Neurological Surgical History: Reports: Laminectomy Musculoskeletal Surgical History: Reports: Knee Replacement, Other (See Below) Other Musculoskeletal Surgeries/Procedures:: Shoulder surgery, laminectomy Dermatological Surgical History: Reports: None Social & Family History - Family History Family Medical History: Noncontributory - Tobacco Use Smoking Status *Q: Never Smoker Second Hand Smoke Exposure: No - Caffeine Use Caffeine Use: Reports: Coffee Other Caffeine Use: 1-2 pots - Alcohol Use Days Per Week of Alcohol Use: 0 Number of Drinks Per Day: 0 Total Drinks Per Week: 0 - Recreational Drug Use Recreational Drug Use: No Drug Use in Last 12 Months: No Review of Systems - Review of Systems Review Of Systems: See Below Constitutional: Reports: No Symptoms Eyes: Reports: No Symptoms Ears: Reports: No Symptoms Nose: Reports: No Symptoms Mouth/Throat: Reports: No Symptoms Respiratory: Reports: No Symptoms Cardiovascular: Reports: No Symptoms GI/Abdominal: Reports: No Symptoms Genitourinary: Reports: No Symptoms Musculoskeletal: Reports: Other (Right wrist pain and edema) ED EXAM, GENERAL - Physical Exam Exam: See Below Exam Limited By: No Limitations General Appearance: Alert, No Apparent Distress Ears: Normal External Exam Nose: Normal Inspection Head: Atraumatic, Normocephalic Neck: Normal Inspection Respiratory/Chest: No Respiratory Distress Extremities: Other (Pain upon palpation to the right wrist with edema. Good sensation and capillary refill distally.) Course - Vital Signs Last Recorded V/S: Last Vital Signs Temp 96.7 F 07/24/17 07:52 Pulse 92 07/24/17 07:52 Resp 16 07/24/17 07:52 BP 165/97 H 07/24/17 07:52 Pulse Ox 98 07/24/17 07:52 - Orders/Labs/Meds Orders: Active Orders 24 hr Category Date Time Status Durable Medical Equipment for Discharge [DME for Oth 07/24/17 09:21 Ordered Discharge] [COMM] Stat - Re-Assessments/Exams Free Text/Narrative Re-Assessment/Exam: 07/24/17 08:21 I have ordered an x-ray of her right wrist. 07/24/17 09:21 Her x-ray shows some mild degenerative change and osteopenia. I will get her in a wrist splint. She has some ultram and hydrocodone at home. She cannot take antiinflammatories they affected her kidneys in the past. Departure - Departure Time of Disposition: :25 Disposition: Home, Self-Care 01 Condition: Good Clinical Impression: Sprain of right wrist Qualifiers: Encounter type: initial encounter Qualified Code(s): S63.501A - Unspecified sprain of right wrist, initial encounter - Discharge Information Referrals: Ankit Willams MD [Primary Care Provider] - 1 Week Forms: ED Department Discharge Additional Instructions: Wear the wrist splint for 1 to 2 weeks. Follow up with Dr Willams in 1 week. Please return if you are worse. - My Orders Last 24 Hours: My Active Orders 07/24/17 09:21 Durable Medical Equipment for Discharge [DME for Discharge] [COMM] Stat - Assessment/Plan Last 24 Hours: My Active Orders 07/24/17 09:21 Durable Medical Equipment for Discharge [DME for Discharge] [COMM] Stat
--- NOTE | 2017-07-24 09:12 | CR ---
Right wrist: Four views of the right wrist were obtained. Comparison: No prior wrist exam. Mild degenerative change is noted at the CMC joint of the thumb. Mild joint space narrowing is noted off the distal navicular bone. Slight chondrocalcinosis is seen within the triangular fibrocartilage. Benign cyst is noted within the navicular bone as well as smaller cysts scattered within other carpal bones. Bony structures are osteopenic. No acute fracture or dislocation is seen. Impression: 1. Mild degenerative change and osteopenia. 2. Nothing acute is appreciated on right wrist exam. Diagnostic code #2
== END 2017-07-24 09:45 | disposition home or self-care (01) ==
LOC: JD.ED 07:44
DX: S63.501A Unspecified sprain of right wrist, initial encounter (principal); I11.9 Hypertensive heart disease without heart failure; E78.00 Pure hypercholesterolemia, unspecified; K21.9 Gastro-esophageal reflux disease without esophagitis; E11.9 Type 2 diabetes mellitus without complications; Z86.2 Personal history of diseases of the blood and blood-forming organs and certain disorders involving the immune mechanism; Z79.4 Long term (current) use of insulin; Z79.82 Long term (current) use of aspirin; Z79.899 Other long term (current) drug therapy; Z88.1 Allergy status to other antibiotic agents; Z88.2 Allergy status to sulfonamides; Z88.8 Allergy status to other drugs, medicaments and biological substances; X58.XXXA Exposure to other specified factors, initial encounter
CPT/HCPCS: 73110-26-RT; 73110-RT; 99283

== ENCOUNTER 2023-07-13 14:03 | Observation (INO) | payer MEDICARE, BC ==
[2023-07-13] MEDS ORDERED: Sodium Chloride 0.9% 10 ML Syringe FLUSH PRN (14:57)
[2023-07-13] MEDS ORDERED: Sodium Chloride 0.9% 500 ML IV ONE ×2 (15:01→16:59)
[2023-07-13 15:19] LABS: BASOPHILS PERCENT AUTO 0.3 % (0.0-1.0); EOSINOPHILS PERCENT AUTO 0.6 % (0.0-6.0); HEMATOCRIT 37.2 % (37.0-47.0); HEMOGLOBIN 12.1 gm/dl (12.0-16.0); IMMATURE GRAN ABSOLUTE AUTO 0.01 K/mm3 (0.00-0.05); IMMATURE GRAN PERCENT AUTO 0.3 % (0.0-0.4); LYMPHOCYTES ABSOLUTE AUTO 1.1 K/mm3 (1.0-4.8); LYMPHOCYTES PERCENT AUTO 35.4 % (24.0-44.0); MEAN CORPUSCULAR HEMOGLOBIN 30.9 pg (28.0-32.0); MEAN CORPUSCULAR HGB CONC 32.5 g/dl (32.0-36.0); MEAN CORPUSCULAR VOLUME 95.1 fl (83.0-99.0); MEAN PLATELET VOLUME 9.2 fl (9.4-12.3); MONOCYTES ABSOLUTE AUTO 0.4 K/mm3 (0.0-0.8); MONOCYTES PERCENT AUTO 11.3 % (0.0-8.0); NEUTROPHILS ABSOLUTE AUTO 1.6 K/mm3 (1.8-7.7); NEUTROPHILS PERCENT AUTO 52.1 % (41.0-71.0); PLATELET COUNT,PLT 173 K/mm3 (150-400); RED BLOOD CELL COUNT 3.91 M/mm3 (4.10-5.30); WHITE BLOOD CELL COUNT,WBC 3.11 K/mm3 (3.9-11.3)
[2023-07-13 15:27] LABS: A/G RATIO 1.2 (1-2); ALANINE AMINOTRANSFERASE,ALT 20 U/L (14-59); ALBUMIN 3.7 g/dl (3.4-5.0); ALKALINE PHOSPHATASE 120 U/L (46-116); ANION GAP 15.3 (5-15); ASPARTATE AMNIOTRANSFERASE,AST 17 U/L (15-37); BILIRUBIN TOTAL 0.3 mg/dL (0.2-1.0); BLOOD UREA NITROGEN,BUN 29 mg/dL (7-18); BUN/CREATININE RATIO 20.7 (14-18); CALCIUM 9.1 mg/dL (8.5-10.1); CARBON DIOXIDE,CO2 24 mEq/L (21-32); CHLORIDE,CL 105 mEq/L (98-107); CREATININE 1.4 mg/dL (0.55-1.02); EST CRCL DRUG DOSING (CG) 24.74 mL/min; ESTIMATED GFR 37 mL/min (>60); GLUCOSE RANDOM 98 mg/dL (70-99); POTASSIUM,K 4.3 mEq/L (3.5-5.1); PROTEIN TOTAL,TP 6.9 g/dl (6.4-8.2); SODIUM,NA 140 mEq/L (136-145)
[2023-07-13 15:28] LABS: C-REACTIVE PROTEIN < 0.2 mg/dL (<1.0)
[2023-07-13 16:07] LABS: APPEARANCE,URINE CLEAR (Clear); BILIRUBIN,URINE NEGATIVE (Negative); COLOR,URINE YELLOW (Yellow); GLUCOSE,URINE NEGATIVE (Negative); KETONES,URINE NEGATIVE (Negative); LEUKOCYTE ESTERASE,URINE NEGATIVE (Negative); NITRITE,URINE NEGATIVE (Negative); OCCULT BLOOD,URINE TRACE-LYSED (Negative); PROTEIN,URINE 1+ (Negative); UROBILINOGEN,URINE 0.2 (0.2-1.0)
[2023-07-13 16:29] LABS: INFLUENZA A NAA NEGATIVE (NEGATIVE); RESPIRATORY SYNCYTIAL VIR NAA NEGATIVE (NEGATIVE)
[2023-07-13 16:36] LABS: CORONAVIRUS COVID-19 NAA POSITIVE (NEGATIVE)
[2023-07-13 16:39] LABS: SQUAMOUS EPITHELIAL CELLS,UR 0-5 /hpf (0-5); WBC,URINE 0-5 /hpf (0-5)
[2023-07-13 16:40] LABS: BACTERIA,URINE FEW /hpf (FEW); MUCUS,URINE FEW /hpf (FEW)
[2023-07-13] MEDS ORDERED: traMADol 50 MG Tab PO ONE (16:57)
[2023-07-13] MEDS ORDERED: Ondansetron 4 MG Tab.DIS PO PRN (17:40)
[2023-07-13] MEDS ORDERED: Polyethylene Glycol 3350 Powder 17 GM Packet PO PRN (17:40)
[2023-07-13] MEDS ORDERED: Ondansetron 4 MG/2 ML SDV IV PRN (17:40)
[2023-07-13] MEDS ORDERED: Heparin Sodium 5,000 Units/ML Vial SUBCUT SCH (17:45)
[2023-07-13] MEDS ORDERED: Dextrose 5%-0.45% NaCl 1,000 ML IV SCH (17:45)
[2023-07-13] MEDS: Acetaminophen 325 MG Tab PO PRN (20:31)
[2023-07-13] MEDS ORDERED: tiZANidine 4 MG Tab PO PRN (20:45)
[2023-07-13] MEDS ORDERED: Carvedilol 6.25 MG Tab PO SCH (21:00)
[2023-07-13] MEDS ORDERED: Gabapentin 100 MG Cap PO SCH (21:00)
[2023-07-13] MEDS ORDERED: Insulin Glargine,Human Rec. Analog 100 Units/ML 3 ML Pen SUBCUT SCH (21:00)
[2023-07-13] MEDS: Heparin Sodium 5,000 Units/ML Vial SUBCUT SCH (21:22)
[2023-07-13] MEDS: Carvedilol 12.5 MG Tab PO SCH (21:22)
[2023-07-13] MEDS ORDERED: traZODone 50 MG Tab PO PRN (22:44)
[2023-07-14] MEDS: Acetaminophen 325 MG Tab PO PRN ×3 (00:57→10:54)
[2023-07-14] MEDS: Heparin Sodium 5,000 Units/ML Vial SUBCUT SCH (05:43)
[2023-07-14] MEDS: Carvedilol 12.5 MG Tab PO SCH ×2 (05:45→06:16)
[2023-07-14 05:47] LABS: BASOPHILS PERCENT AUTO 0.3 % (0.0-1.0); HEMATOCRIT 37.2 % (37.0-47.0); IMMATURE GRAN ABSOLUTE AUTO 0.01 K/mm3 (0.00-0.05); IMMATURE GRAN PERCENT AUTO 0.3 % (0.0-0.4); LYMPHOCYTES ABSOLUTE AUTO 1.1 K/mm3 (1.0-4.8); LYMPHOCYTES PERCENT AUTO 36.3 % (24.0-44.0); MEAN CORPUSCULAR HEMOGLOBIN 30.5 pg (28.0-32.0); MEAN CORPUSCULAR HGB CONC 32.3 g/dl (32.0-36.0); MEAN CORPUSCULAR VOLUME 94.4 fl (83.0-99.0); MONOCYTES ABSOLUTE AUTO 0.3 K/mm3 (0.0-0.8); MONOCYTES PERCENT AUTO 11.6 % (0.0-8.0); NEUTROPHILS ABSOLUTE AUTO 1.5 K/mm3 (1.8-7.7); NEUTROPHILS PERCENT AUTO 50.5 % (41.0-71.0); PLATELET COUNT,PLT 169 K/mm3 (150-400); RED BLOOD CELL COUNT 3.94 M/mm3 (4.10-5.30); WHITE BLOOD CELL COUNT,WBC 2.92 K/mm3 (3.9-11.3)
[2023-07-14] MEDS ORDERED: traMADol 50 MG Tab PO PRN (06:00)
[2023-07-14 06:15] LABS: A/G RATIO 1.2 (1-2); ALBUMIN 3.6 g/dl (3.4-5.0); ANION GAP 13.7 (5-15); BILIRUBIN TOTAL 0.3 mg/dL (0.2-1.0); BUN/CREATININE RATIO 19.1 (14-18); CALCIUM 9.1 mg/dL (8.5-10.1); CREATININE 1.1 mg/dL (0.55-1.02); EST CRCL DRUG DOSING (CG) 31.49 mL/min; POTASSIUM,K 3.7 mEq/L (3.5-5.1); PROTEIN TOTAL,TP 6.7 g/dl (6.4-8.2)
[2023-07-14] MEDS ORDERED: FLU Vacc QS2022(65UP)/MF59C/PF 60 MCG/0.5 ML Syringe IM ONE (07:00)
[2023-07-14] MEDS ORDERED: Insulin Lispro 100 Unit/ML 3 ML KwikPen SUBCUT SCH ×2 (07:00→20:53)
[2023-07-14] MEDS ORDERED: Aspirin 81 MG Tab.Chew PO SCH (08:45)
[2023-07-14 09:00] VITALS: BP 168/89; PULSE 86
[2023-07-14] MEDS ORDERED: Allopurinol 100 MG Tab PO SCH (09:00)
[2023-07-14] MEDS ORDERED: Non-Formulary Medication 1 Each (Rosuvastatin 20 MG Tablet) PO SCH (09:00)
[2023-07-14] MEDS ORDERED: Non-Formulary Medication 1 Each (Omeprazole [Omeprazole] 40 MG Capsule.Dr) PO SCH (09:00)
[2023-07-14] MEDS ORDERED: Losartan 100 MG Tab PO SCH (09:00)
[2023-07-14] MEDS ORDERED: amLODIPine 5 MG Tab PO SCH (09:00)
[2023-07-14] MEDS ORDERED: Levothyroxine 25 MCG Tab PO SCH (09:00)
[2023-07-14] MEDS ORDERED: FLU (Fluad Quad) 2023-24(65UP)/MF59C/PF 60 MCG/0.5 ML Syringe IM ONE (09:15)
[2023-07-14] MEDS ORDERED: Insulin Glargine,Human Rec. Analog 100 Units/ML 3 ML Pen SUBCUT SCH ×2 (21:00)
[2023-07-14] MEDS ORDERED: Sucralfate 1 GM Tab PO SCH (21:00)
== END 2023-07-14 12:47 | disposition home or self-care (01) ==
LOC: JD.ED 14:03 → JD.MS 17:40
PROVIDERS: ADMIT Hospitalist; ATTEND Hospitalist
DX: U07.1 COVID-19 (principal); E86.0 Dehydration; I48.91 Unspecified atrial fibrillation; E78.00 Pure hypercholesterolemia, unspecified; I10 Essential (primary) hypertension; K21.9 Gastro-esophageal reflux disease without esophagitis; M54.9 Dorsalgia, unspecified; G89.29 Other chronic pain; E03.9 Hypothyroidism, unspecified; E11.9 Type 2 diabetes mellitus without complications; E21.3 Hyperparathyroidism, unspecified; E66.9 Obesity, unspecified; Z88.0 Allergy status to penicillin; Z88.1 Allergy status to other antibiotic agents; Z88.2 Allergy status to sulfonamides; Z88.8 Allergy status to other drugs, medicaments and biological substances; Z79.4 Long term (current) use of insulin; Z79.890 Hormone replacement therapy; Z79.899 Other long term (current) drug therapy; Z79.84 Long term (current) use of oral hypoglycemic drugs; Z79.82 Long term (current) use of aspirin
CPT/HCPCS: 0241U; 36415; 71045; 80053; 81001; 82947; 84145; 85025; 86140; 87040; 87641; 90694; 93005; 94760; 96372; 97161; A9270; G0378; J1644; J1815; J3490; J7030; J7042; 93010; 96360; 96361; 99285; 99285-25